=== PATIENT | female | born 1990 | race Caucasian/White ===

== ENCOUNTER 2020-03-18 12:31 | Emergency (ER) | payer OTHER, SELFPAY ==
[2020-03-18 12:37] VITALS: BP 102/75; PULSE 104; RESP 14; TEMP 36.4; O2SAT 99
--- NOTE | 2020-03-18 12:43 | ED.SKABFB ---
HPI - Skin/Abscess/Foreign Bdy General Chief complaint: Skin/Abscess/Foreign Body Stated complaint: rash on arms,face,foot Time Seen by Provider: 03/18/20 12:43 Source: patient and RN notes reviewed History of Present Illness HPI narrative: Patient is a 29-year-old female that presents the urgent care with complaints of rash to the left arm, right foot, and around the left eye. Patient states that 5 days ago she was cutting down a tree, in which she got poison oak from last year. Patient states she woke up 4 days ago with the rash in the above areas. Patient is 8 months and followed up with her CITY SURVEYOR, Dr. Garima Landaverde, and was using vzei-qga-asproxe Benadryl and hydrocortisone as well as calamine lotion. Patient states that her CITY SURVEYOR suggested she be seen at the urgent care to suggest further treatment options. Patient states that the eye swelling started yesterday and seems to have gotten worse. Denies of any vision changes. No other acute complaints. No acute distress noted. Patient read the plan of care. Related Data Home Medications Medication Instructions Recorded Confirmed [id number] acid 1 tablet PO DAILY 03/18/20 03/18/20 [ Multi] Allergies Allergy/AdvReac Type Severity Reaction Status Date / Time aspirin Allergy Unknown Hives / Verified 04/19/19 12:34 Red Face Penicillins Allergy Unknown Other Verified 03/18/20 12:46 Review of Systems Review of Systems: Narrative: CONSTITUTIONAL: Denies fever, chills, or sweats. EYES: Denies visual changes, redness, or discharge. ENT: Denies rhinorrhea, congestion, sore throat, or otalgia. CARDIOVASCULAR: Denies chest pain, palpitations, or edema. RESPIRATORY: Denies cough or dyspnea. GASTROINTESTINAL: Denies abdominal pain, nausea, vomiting, or diarrhea. GENITOURINARY: Denies dysuria or hematuria. SKIN: Reports of itchy red poison oak to left arm, right foot and around the left eye MUSCULOSKELETAL: Denies back pain, joint pain, or myalgia. NEUROLOGIC: Denies headache, numbness, or weakness. All other systems reviewed are negative, except as documented in HPI. PMFSH Comments At the time of my signature, I reviewed and agree with the nursing past medical, surgical, social, and family history. There is no relevant family history pertinent to the patient complaint. Exam Narrative: Exam Narrative: GENERAL: This is a well-nourished, well-developed patient, in no apparent distress. HEAD: normocephalic, atraumatic. EYES: PERRL. Sclera clear/white. Vision is grossly intact. Mild edema to left upper eyelid EARS: External ears normal, auditory canals clear and without drainage, TMs normal without perforation. Hearing grossly intact. NOSE: External nose normal with no obvious nasal discharge THROAT: Mucous membranes moist NECK: Neck supple SKIN: Dried ruse dermatitis noted to left AC, left lower arm, right lower arm, top of the right foot, and mild erythemic lesions noted above the left eye NEURO: awake, alert, and oriented to person, place and time. There were no obvious focal neurologic abnormalities. EXTREMITIES: No clubbing, cyanosis, or edema. Course Vital Signs Vital signs: Vital Signs Temperature 97.5 F L 03/18/20 12:37 Pulse Rate 104 H 03/18/20 12:37 Respiratory Rate 14 03/18/20 12:37 Blood Pressure 102/75 03/18/20 12:37 Pulse Oximetry 99 03/18/20 12:37 Temperature 97.5 F L 03/18/20 12:37 Pulse Rate 104 H 03/18/20 12:37 Respiratory Rate 14 03/18/20 12:37 Blood Pressure 102/75 03/18/20 12:37 Pulse Oximetry 99 03/18/20 12:37 Reviewed MDM - Skin/Abscess/Foreign Bdy MDM Narrative Medical decision making narrative: Advised the patient to continue using xfcm-unz-ewnbubk calamine and Benadryl creams as needed. May use Zyrtec as needed for itching. Start oral steroid treatment as prescribed. Take the pack as indicated. Prior to any medication administration, including pmot-knv-excexik medication and st
== END 2020-03-18 12:58 | disposition home or self-care (01) ==
PROVIDERS: Emergency Provider Nurse Practitioner Family; PCP Internal Medicine
DX: L23.7 Allergic contact dermatitis due to plants, except food (principal)
CPT/HCPCS: 99213; G0463

== ENCOUNTER 2020-03-24 14:36 | Emergency (ER) | payer OTHER, SELFPAY ==
[2020-03-24 14:48] VITALS: BP 126/67; PULSE 105; RESP 14; TEMP 36.8; O2SAT 98
--- NOTE | 2020-03-24 14:51 | ED.SKABFB ---
HPI - Skin/Abscess/Foreign Bdy General Chief complaint: Skin/Abscess/Foreign Body Stated complaint: Poison Jackson Time Seen by Provider: 03/24/20 14:52 Source: patient and RN notes reviewed Mode of arrival: ambulatory Limitations: no limitations History of Present Illness HPI narrative: This is a 29 years old female presents to the office for an re-evaluation of itchy rash. States, she completed steroid today; but she still has rash on her belly region. She called her OBGYN; who recommends that she comes back here. She is 8months and scheduled to have in 3 weeks. HPI - Skin/Abscess/Foreign Bdy General Chief complaint: Skin/Abscess/Foreign Body Stated complaint: rash on arms,face,foot Time Seen by Provider: 03/18/20 12:43 Source: patient and RN notes reviewed History of Present Illness HPI narrative: Patient is a 29-year-old female that presents the urgent care with complaints of rash to the left arm, right foot, and around the left eye. Patient states that 5 days ago she was cutting down a tree, in which she got poison oak from last year. Patient states she woke up 4 days ago with the rash in the above areas. Patient is 8 months and followed up with her EXPERIENCE SPECIALIST, Dr. Garima Landaverde, and was using btpk-ydg-ezgupfo Benadryl and hydrocortisone as well as calamine lotion. Patient states that her EXPERIENCE SPECIALIST suggested she be seen at the urgent care to suggest further treatment options. Patient states that the eye swelling started yesterday and seems to have gotten worse. Denies of any vision changes. No other acute complaints. No acute distress noted. Patient read the plan of care. Related Data Home Medications Medication Instructions Recorded Confirmed [id number] acid 1 tablet PO DAILY 03/18/20 03/24/20 [ Multi] Allergies Allergy/AdvReac Type Severity Reaction Status Date / Time aspirin Allergy Unknown Hives / Verified 03/24/20 14:55 Red Face Penicillins Allergy Unknown Other Verified 03/24/20 14:55 Review of Systems Review of Systems: Narrative: CONSTITUTIONAL: Denies fever or feeling ill ENT:Denies difficulty breathing/swallowing CARDIOVASCULAR: Denies chest pain RESPIRATORY: Denies dyspnea GASTROINTESTINAL: Denies nausea, vomiting SKIN: Reports itchy rash on her arms and belly region MUSCULOSKELETAL: Denies acute back pain NEUROLOGIC: Denies lightheaded PMFSH Comments At time of signature, I agree with nursing past medical, surgical, social and family history. There is no relevant family history pertinent to the presenting complaint. Exam Narrative: Exam Narrative: GENERAL: This is a well-nourished, well-developed patient, in no apparent distress. CARDIOVASCULAR: Regular rate and rhythm without murmurs, gallops, or rubs. RESPIRATORY: Clear to auscultation. Breath sounds equal bilaterally. No wheezes, rales, or rhonchi. GASTROINTESTINAL: Abdomen appears very round and protrude. No guarding or tenderness noted. SKIN: left AC noted excoriation macular-papular rash without erythema or secondary infection. Abdomen noted excoriation and scratch freddie without obvious lymphandenitis. NEURO: awake, alert, and oriented to person, place and time. There were no obvious focal neurologic abnormalities. Steady gait Hudson Coma Scale Eye Opening: Spontaneous 4 Hudson Coma Scale Motor: Obeys Commands 6 Delisa Coma Scale Verbal: Oriented 5 MDM - Skin/Abscess/Foreign Bdy MDM Narrative Medical decision making narrative: Since patient is finished the steroid today, I do not think it is a good idea to give her steroid injection or prescribed more steroid since the rash does not appears inflamed/generalized; however she can be benefited from topical steroid. Patient agrees with plan of care. Discharge instructions reviewed with patient, as well as provided in writing per nursing staff. The instructions also include specific and strict return/GO TO THE ER as well as f/u informa
== END 2020-03-24 15:11 | disposition home or self-care (01) ==
PROVIDERS: Emergency Provider Nurse Practitioner; PCP Internal Medicine
DX: O99.713 Diseases of the skin and subcutaneous tissue complicating pregnancy, third trimester (principal); L24.7 Irritant contact dermatitis due to plants, except food; Z3A.35 35 weeks gestation of pregnancy
CPT/HCPCS: 99213; G0463

== ENCOUNTER 2020-04-16 16:40 | Outpatient (CLI) | payer OTHER, SELFPAY ==
[2020-04-16 16:59] LABS: Hematocrit 33.3 % (37.0-47.0); Mean Corpuscular Hemoglobin 28.2 pg (26-34); Mean Corpuscular Volume 85.4 fl (80-100); Mean Platelet Volume 10.6 fl (7.4-10.4); Platelet Count Result 202 k/mm3 (150-375); Red Cell Distribution Width 13.6 % (11.5-14.5); White Blood Count 7.5 K/mm3 (4.5-10.0)
[2020-04-18 07:41] LABS: Rapid Plasma Reagin Non-Reactive (NonReactive)
== END 2020-04-16 16:41 | disposition home or self-care (01) ==
LOC: ANHOBOP 16:42
PROVIDERS: PCP Internal Medicine; Visit Provider Obstetrics & Gynecology
DX: Z34.93 Encounter for supervision of normal pregnancy, unspecified, third trimester (principal); Z3A.00 Weeks of gestation of pregnancy not specified
CPT/HCPCS: 36415; 85027; 86592; 86850; 86900; 86901

== ENCOUNTER 2020-04-17 12:51 | Inpatient (IN) | payer OTHER, SELFPAY ==
--- NOTE | 2020-03-25 15:21 | PC.NURSE ---
VERIFIED WITH OR SCHEDULE AND PATIENT --C/S ON 04/18/20 AT 1200 PATIENT GIVEN REQUISITION FOR LAB DRAWN ON 04/16/20
[2020-04-17] VITALS (42 sets, daily range): BP systolic 93–126; BP diastolic 50–90; PULSE 69–101; RESP 14–20; TEMP 36.3–37.1; O2SAT 90–100; BMI 43.3
--- NOTE | 2020-04-17 13:10 | LDADM ---
This patient, Kianna Cortes, was admitted to Labor/Delivery/Recovery 120 on 04/17/20 at 1251. Plans for surgery/ and pain management were discussed with patient. Patient/family oriented to hospital policies and general routines including ID bracelet, bed and alarms, visiting hours, pain management, procedures, bathroom and other care routines, personal items, smoking policy, room service/diet and guest tray routines, security routines, and visiting hours. Patient/Family are encouraged to report perceived risks to care and to ask questions if they do not understand what they are told or what they should do. See OBIX for further documentation.
--- NOTE | 2020-04-17 13:19 | WPDANESEPPF ---
Anes - Initial Pre Proc Eval Procedure: Operation Date: 04/18/20 12:00 Proposed Procedures p Repeat Section - Dena Landaverde MD Date/Time: 04/17/20 13:19 Surgeon: eDna Landaverde MD Pre Op Diagnosis: Leaking Patient Data Age: 29 Gender: F Height: Weight: Allergies Allergy/AdvReac Type Severity Reaction Status Date / Time aspirin Allergy Unknown Hives / Verified 03/25/20 14:56 Red Face Penicillins Allergy Unknown Other Verified 03/25/20 14:56 Home Medications Medication Instructions Recorded Confirmed Type [id number] acid 1 tablet PO DAILY 03/18/20 03/24/20 History [ Multi] triamcinolone acetonide 1 applic TOPICAL BID #30 gm 03/24/20 Rx Patient hx anesthesia problems: none Family hx anesthesia problems: none PMFSH Past Medical History Medical History Marijuana use Family History Family History Mother Hypothyroidism Hypertension Cervical cancer Kidney carcinoma Lung cancer Diabetes mellitus Sibling Cervical cancer Hypothyroidism IBS (irritable bowel syndrome) Father Liver cancer Kidney carcinoma Bone cancer Diabetes mellitus Hypertension Acute myocardial infarction History of blood clots Thyroid ca Social History Social History Substance use: current Spiritual care concerns: No Anes - Eval Final PreProcedure Day of Procedure 04/17/20 13:19 Patient weight: morbidly obese Heart: regular rate and rhythm Lungs: decreased breath sounds Airway: Mallampati scale class II Neurological: alert and oriented ASA classification: III Emergent: yes Anesthetic plan: proceed Anesthesia type and monitoring: regional spinal and standard monitoring Informed Consent: The patient's anesthetic plan and its attendant risks and benefits were discussed with the patient/family/POA. Questions were solicited and answers provided to the satisfaction of the patient/family/POA.
[2020-04-17] MEDS: LACTATED RINGERS 1,000 ML 125 ML IV CONT (13:25)
--- NOTE | 2020-04-17 13:29 | PM.IMHP ---
H&P: HPI History of Present Illness Chief complaint: Leaking Narrative: Kianna Cortes is a 29 year old female 3 para 1011 at 38-,6/7 weeks gestation who presents with spontaneous rupture membranes. She had a scheduled delivery for tomorrow for a previous delivery. She has no complaints other than the loss of fluid. She denies any vaginal bleeding. She has occasional contraction. She denies any nausea, vomiting, fever, chills. She denies any chest pain or shortness of breath. She reports good movement. Review of Systems Constitutional: Constitutional: Reports no additional constitutional complaints, Denies fatigue, Denies headache(s), Denies lethargy and Denies weakness Eyes: Eyes: Reports no additional eye complaints, Denies blurry vision and Denies photophobia ENT: Reports as per HPI, Denies headache(s) and Denies neck pain Cardiovascular: Cardiovascular: Denies chest pain, Denies diaphoresis, Denies leg edema, Denies palpitations and Denies dyspnea Respiratory: Respiratory: Denies hemoptysis, Denies dyspnea and Denies wheezing Gastrointestinal: Gastrointestinal: Denies abdominal pain, Denies melena, Denies bloating, Denies hematochezia, Denies nausea and Denies vomiting Genitourinary: Genitourinary: Reports no additional female genitourinary complaints Musculoskeletal: Musculoskeletal: Denies joint swelling, Denies neck pain, Denies numbness and Denies stiffness Neurologic: Denies Abnormal speech present, Denies confusion, Denies headache(s), Denies numbness and Denies weakness Psychiatric: Psychiatric: Denies anxiety, Denies confusion, Denies depression, Denies homicidal ideation and Denies suicidal ideation Endocrine: Endocrine: Denies fatigue and Denies palpitations Allergic/Immunologic: Allergic/Immunologic: Denies wheezing PMFSH Past Medical History Medical History Marijuana use Family History Family History Mother Hypothyroidism Hypertension Cervical cancer Kidney carcinoma Lung cancer Diabetes mellitus Sibling Cervical cancer Hypothyroidism IBS (irritable bowel syndrome) Father Liver cancer Kidney carcinoma Bone cancer Diabetes mellitus Hypertension Acute myocardial infarction History of blood clots Thyroid ca Social History Social History Substance use: current Spiritual care concerns: No Meds Home Medications and Allergies Home Medications Medication Instructions Recorded Confirmed Type [id number] acid 1 tablet PO DAILY 03/18/20 03/24/20 History [ Multi] Allergies Allergy/AdvReac Type Severity Reaction Status Date / Time aspirin Allergy Unknown Hives / Verified 03/25/20 14:56 Red Face Penicillins Allergy Unknown Other Verified 03/25/20 14:56 Vital Signs Vital Signs - 24 hr 04/17/20 13:28 Pulse Rate 101 H Blood Pressure 125/84 Exam Const: General: healthy appearing, comfortable and no acute distress; No confusion Orientation/consciousness: No confusion Eyes: Direct Ophthalmoscopy: No photophobia Resp: Auscultation: clear to auscultation bilaterally, no rales, no rhonchi and no wheezes Cardio: Rate: regular rate Heart sounds: no click, no murmurs and no rubs GI: Inspection: non-distended GI Palp: No abdominal tenderness Auscultation: normal bowel sounds Neuro: General: No confusion Speech: No Abnormal speech present Extrem: General: normal to inspection, no pedal edema and no calf tenderness Assessment and Plan Assessment and plan (1) Previous delivery, antepartum condition or complication: Code(s): O34.219 - Maternal care for unspecified type scar from previous delivery Status: Acute (2) Term : Code(s): Z34.90 - Encounter for supervision of normal , unspecified, unspecified trimes
[2020-04-17] MEDS: ceFAZolin 2 GM/D5W 50 ML 2 GM/50 ML BAG IVPB (13:45)
--- NOTE | 2020-04-17 14:21 | P.OP_ITS ---
Procedure Note - Detailed Date of procedure: 04/17/20 Pre-op diagnosis: C Section/ ROM Previous Post-op diagnosis: same Procedure performed: low-transverse delivery Description of procedure: The patient was taken the operating room. She was prepped and draped in the dorsal supine position with leftward tilt after induction of spinal anesthetic. When anesthesia was found to be adequate a low-transverse skin incision was made and carried down to the level the fascia with the knife. The fascial incision was made at the midline with a scalpel. The fascial incision was extended laterally with Mendez scissors. The fascia was tented upward superior and inferior with Az clamps. The rectus muscles were dissected off bluntly. The rectus muscles at the midline. The preperitoneal fat was dissected bluntly at the superior aspect of the separate the rectus muscles. The peritoneal cavity was entered bluntly in the same area. The peritoneal incision was extended superior and inferior with good visualization of bladder. Bladder blade was inserted. A low-transverse incision was made on the uterus with the scalpel. It was carried down the level of the amniotic cavity with a knife. The amniotic cavity bluntly. The uterine incision was made laterally with blunt traction. The infant was delivered. The cord was clamped and cut. The was handed off to waiting pediatric staff. Cord bloods were obtained. The placenta was removed manually. The uterus was exteriorized. Uterus cleared of all clots and debris. Uterus closed in 0 Vicryl in a running locked fashion. An imbricating layer of 0 Vicryl was also placed on the to bolster the closure. The uterus was returned to the abdomen. The gutters were cleared of all clots and debris. The fascia was closed 0 V icryl in a running fashion. Subcutaneous tissue was irrigated and bleeding areas were cauterized. The skin was closed with subcuticular absorbable keith. The incision was covered with derma mcgowan. The patient tolerated the procedure well. She was taken recovery room stable condition. Sponge, lap, needle counts were correct x2. Anesthesia: spinal Surgeon: Toi Branch MD Estimated blood loss (mL): 340 Drains: No Packing: No Pathology: none sent Complications: No immediate complications Condition: stable Disposition: floor Findings: Normal maternal anatomy. Average size infant with normal Apgars. No gross evidence of abruption.
[2020-04-17] MEDS: LACTATED RINGERS 1,000 ML 999 ML IV CONT (14:28)
[2020-04-17 15:12] LABS: Amphetamine Screen Urine Negative (Negative); Barbiturate Screen Urine Negative (Negative); Benzodiazepines Screen Urine Negative (Negative); Cannabinoid Screen Urine Positive (Negative); Cocaine Screen Urine Negative (Negative); Methadone Screen Urine Negative (Negative); Opiate Screen Urine Negative (Negative); Phencyclidine Screen Urine Negative (Negative)
[2020-04-17] MEDS: OXYTOCIN 30 UNITS/NS 500 ML 30 UNITS/500 ML BAG 125 UNITS IV CONT (15:15)
--- NOTE | 2020-04-17 16:45 | PC.NURSE ---
Patient transferred to post room #282 via wheelchair. Support person present. Oriented to unit, room, information board, rooming in, admission packet and security measures. Patient verbalizes understanding.
[2020-04-17] MEDS: KETOROLAC 30 MG/ML VIAL (*BKC) IV PUSH (17:24)
[2020-04-17] MEDS: NICOTINE (*PBKC) 7 MG PATCH 1 PATCH TRANSDERM (17:46)
[2020-04-17] MEDS: DEXTROSE 5%/0.45% SOD CHL 1,000 ML 125 ML IV CONT (19:33)
[2020-04-18 00:15] VITALS: BP 111/57; PULSE 84; RESP 14; TEMP 36.6
[2020-04-18 04:45] LABS: Basophils Percent Auto 0.1 % (0.2-1.2); Eosinophils Absolute Auto 0.1 K/mm3 (0-0.3); Eosinophils Percent Auto 1.4 % (0-4.4); Hematocrit 29.3 % (37.0-47.0); Hemoglobin 9.7 g/dL (12.0-15.0); Immature Granulocyte Absolute 0.02 K/mm3 (0.00-0.031); Immature Granulocyte Percent A 0.2 % (0-0.5); Lymphocytes Absolute Auto 1.14 K/mm3 (0.9-3.2); Lymphocytes Percent Auto 13.3 % (18.3-44.2); Mean Corpuscular HGB Conc 33.1 g/dl (32-36); Mean Corpuscular Hemoglobin 28.1 pg (26-34); Mean Corpuscular Volume 84.9 fl (80-100); Mean Platelet Volume 10.3 fl (7.4-10.4); Monocytes Absolute Auto 0.5 K/mm3 (0.1-0.6); Monocytes Percent Auto 5.7 % (2.6-8.5); Neutrophils Absolute Auto 6.8 K/mm3 (1.3-6.7); Neutrophils Percent Auto 79.3 % (45.5-73.1); Platelet Count Result 162 k/mm3 (150-375); Red Blood Count 3.45 M/mm3 (4.2-5.4); Red Cell Distribution Width 13.6 % (11.5-14.5); White Blood Count 8.6 K/mm3 (4.5-10.0)
[2020-04-18] MEDS: IBUPROFEN 600 MG TABLET PO ×3 (04:46→19:18)
[2020-04-18 05:45] VITALS: BP 120/68; PULSE 104; RESP 14; TEMP 36.5
--- NOTE | 2020-04-18 07:40 | P.PNOB_ITS ---
OB - PN: Subj Subjective Date/time seen: 04/18/20 07:40 Patient comments: no complaints, pain well controlled, incisional pain, tolerating diet, flatus present and other (Lochia similar to menses) baby status: doing well OB - PN: Obj Data Labs CBC & Chem 7: 04/18/20 04:28 Labs: Laboratory Results - last 24 hr 04/17/20 04/18/20 14:40 04:28 WBC 8.6 RBC 3.45 L Hgb 9.7 L Hct 29.3 L MCV 84.9 MCH 28.1 MCHC 33.1 RDW 13.6 Plt Count 162 MPV 10.3 Immature Gran % (Auto) 0.2 Neut % (Auto) 79.3 H Lymph % (Auto) 13.3 L [place] % (Auto) 5.7 Eos % (Auto) 1.4 Baso % (Auto) 0.1 L Lymph # (Auto) 1.14 [place] # (Auto) 0.5 Eos # (Auto) 0.1 Baso # (Auto) 0.0 Abs Immat Gran (auto) 0.02 Absolute Neuts (auto) 6.8 H Absolute Nucleated RBC 0.0 Nucleated RBC % 0.0 Urine Opiates Screen Negative Urine Methadone Screen Negative Ur Barbiturates Screen Negative Ur Phencyclidine Scrn Negative Ur Amphetamine Screen Negative U Benzodiazepines Scrn Negative Urine Cocaine Screen Negative U Cannabinoids Screen Positive A OB - PN A/P Plan day: 1 (s/p C section, doing well) Plan: routine care Time Spent With Patient Time: Total time spent is greater than 50% in coordination of care (as documented) at patient's floor/unit and/or counseling patient: Exam Const: General: no acute distress Resp: Auscultation: clear to auscultation bilaterally Cardio: Rate: regular rate Rhythm: regular rhythm GI: Inspection: non-distended, incision (Intact without erythema, drainage, or induration) and other (Fundus firm and nontender at umbilicus) GI Palp: Yes abdominal tenderness (appropriate ) and Yes Soft to palpation Extrem: General: no edema
[2020-04-18 08:10] VITALS: BP 97/65; PULSE 81; RESP 16; TEMP 36.8; O2SAT 98
--- NOTE | 2020-04-18 08:40 | WPDANLDNPN2 ---
Anes-Prog Note L&D-Neuraxial Date/Time: 04/18/20 08:40 Neuraxial medications: intrathecal PF morphine Opiod-related complaints: none Patient feedback: Patient satisfied with post-operative pain management.
--- NOTE | 2020-04-18 08:40 | WPDANLDPN2 ---
Anes-Prog Note L&D Date/Time: 04/18/20 08:40 Comfortable throughout: section Neuraxial method: spinal Epidural/Spinal procedure site: clean & non-tender Neuro status: Neuro function grossly intact. Cardiovascular status: normal Respiratory status: normal Airway patency: baseline Mental status: baseline Post-Op hydration status: normal Vital Signs: Last Vital Signs Temp 36.5 C 04/18/20 05:45 Pulse 104 H 04/18/20 05:45 Resp 14 04/18/20 05:45 BP 120/68 04/18/20 05:45 Pulse Ox 100 04/17/20 19:00 I/O: Intake & Output 04/17/20 04/18/20 04/18/20 23:59 07:59 15:59 Intake Total 150 2500 Output Total 400 2500 Balance -250 0 Post-procedural complaints: none Patient feedback: Patient satisfied with anesthetic care.
[2020-04-18] MEDS: MULTIVIT/MIN/PREN/FOL AC/IRON TABLET 1 TAB PO (09:01)
[2020-04-18] MEDS: POLYSACCHARIDE IRON COMPLEX 150 MG CAPSULE PO ×2 (09:01→19:18)
[2020-04-18] MEDS: DOCUSATE SODIUM 100 MG CAPSULE PO ×2 (09:01→19:18)
[2020-04-18] MEDS: SIMETHICONE 80 MG TAB.CHEW PO ×5 (09:02→23:26)
--- NOTE | 2020-04-18 10:42 | PCCCNOTE ---
Care Coordination. Patient referred to CC for mother and baby having positive UDS for marijuana. I spoke with pt. via phone. She plans to return home with ANICETO, Nolan Parker, and her other child. She denies [facility] current involvement. She reports having all necessary baby care items and is setup with [facility]. She denies needs for community resources or substance abuse. Spoke with Micheline Champion at [facility] Hotline (Intake ID#[id number]), who documented pt.'s situation, and states they will not take a report. Notified RNKarlee. No further CC needs.
[2020-04-18] MEDS: NICOTINE (*PBKC) 7 MG PATCH 1 PATCH TRANSDERM (12:41)
[2020-04-18 19:19] VITALS: BP 124/78; PULSE 103; RESP 16; TEMP 36.7; O2SAT 99
[2020-04-18] MEDS: TETANUS,DIPHTHERIA,AC PERTUSSIS ADULT (0.5 ML) BOOSTRIX IM (19:35)
[2020-04-19] MEDS: IBUPROFEN 600 MG TABLET PO (06:01)
[2020-04-19] MEDS: SIMETHICONE 80 MG TAB.CHEW PO (06:04)
--- NOTE | 2020-04-19 07:34 | PM.OBPNVD ---
OB - PN: Subj Subjective Date/time seen: 04/19/20 07:34 Patient comments: no complaints, pain well controlled, incisional pain, tolerating diet and flatus present OB - PN: Obj Data Labs CBC & Chem 7: 04/18/20 04:28 OB - PN A/P Plan day: 2 Plan: routine care Comments: POD#2 LTCS - no problems, Time Spent With Patient Time: Total time spent is greater than 50% in coordination of care (as documented) at patient's floor/unit and/or counseling patient: Exam Const: General: comfortable, no acute distress and alert Resp: Effort & Inspection: normal respiratory effort Auscultation: no crackles, no rales and no rhonchi Cardio: Rate: regular rate Heart sounds: no click, no murmurs and no rubs GI: Inspection: non-distended GI Palp: No Tenderness to palpation present (GI) Auscultation: normal bowel sounds Other: Incision - CDI Extrem: General: normal to inspection, no pedal edema and no calf tenderness
--- NOTE | 2020-04-19 07:34 | PM.OBDSVD ---
DS: Admitting Diagnosis Admitting Diagnosis Admitting Diagnosis: Maternal care for unspecified type scar from previous delivery DS: Discharge Diagnosis Discharge Diagnosis (1) Premature rupture of membranes: Code(s): O42.90 - Premature rupture of membranes, unspecified as to length of time between rupture and onset of labor, unspecified weeks of gestation Status: Acute (2) Term : Code(s): Z34.90 - Encounter for supervision of normal , unspecified, unspecified trimester Status: Acute (3) Previous delivery, antepartum condition or complication: Code(s): O34.219 - Maternal care for unspecified type scar from previous delivery Status: Acute OB - DS: Summary OB Procedures : None OB Procedures Intrapartum: OB Procedures: : None Peripartum Data Infant Delivery Method: Section Procedures: Procedures Operation Date: 04/17/20 13:30 Actual Procedures Side Surgeon p Repeat Section Not Applicable Toi Branch MD Time Spent with Patient Time attestation: Total time spent providing and/or coordinating discharge services: Discharge Plan Discharge Discharging Clinician: Toi Branch Patient Disposition: Home, Self-Care Activity: pelvic rest Diet: regular Patient Instructions: How to Stop Smoking (GEN), Secondhand Smoke Exposure in Children (GEN), Antibiotic Form Stand Alone Forms: General Discharge Information Follow-up/Referrals: Toi Branch MD [Physician] - Discharge Medications: New hydrocodone-acetaminophen 5-325 mg tablet 1 - 2 tablet PO Q4H PRN (Reason: pain) Qty: 25 RF: 0 Continued Multi 27-800 mg-mcg Tablet 1 tablet PO DAILY RF: 0 Date of admission: 04/17/20 12:51 Primary Care Provider: Jesus,Jimmie Admitting Provider: Dena Landaverde Attending physician on admission: Dena Landaverde
[2020-04-19 08:38] VITALS: BP 127/81; PULSE 94; RESP 18; TEMP 36.5; O2SAT 94
[2020-04-19] MEDS: MULTIVIT/MIN/PREN/FOL AC/IRON TABLET 1 TAB PO (08:40)
[2020-04-19] MEDS: DOCUSATE SODIUM 100 MG CAPSULE PO (08:40)
[2020-04-19] MEDS: POLYSACCHARIDE IRON COMPLEX 150 MG CAPSULE PO (08:40)
[2020-04-20 08:47] VITALS: BP 103/72; PULSE 89; RESP 20; TEMP 36.9; O2SAT 98
== END 2020-04-19 10:04 | disposition home or self-care (01) | DRG 540 ==
LOC: ANHLDR 14:15 → ANHOB2 17:02 → ANHLDR 04-20 08:26 → ANHOB2 04-20 08:26
PROVIDERS: Admitting Provider Obstetrics & Gynecology; PCP Internal Medicine; Visit Provider Obstetrics & Gynecology
DX: O42.92 Full-term premature rupture of membranes, unspecified as to length of time between rupture and onset of labor (principal); Z37.0 Single live birth; Z3A.38 38 weeks gestation of pregnancy; O34.211 Maternal care for low transverse scar from previous cesarean delivery; E66.01 Morbid (severe) obesity due to excess calories; O99.214 Obesity complicating childbirth; O69.81X0 Labor and delivery complicated by cord around neck, without compression, not applicable or unspecified; O99.324 Drug use complicating childbirth; F12.90 Cannabis use, unspecified, uncomplicated
CPT/HCPCS: 36415; 80307; 85025; 90715; A9270; J0131; J0690; J1200; J1885; J2274; J2590; J7120

== ENCOUNTER 2021-01-01 11:40 | Emergency (ER) | payer OTHER, SELFPAY ==
--- NOTE | ~2021-01-01 | XR_ITS ---
XR ankle LT min 3V DATE: 01/01/2021 12:35 INDICATION: Fell down steps. Pain and swelling of left ankle TECHNIQUE: 4 views COMPARISON: None FINDINGS: No soft tissue swelling or fracture or dislocation of the ankle or disruption of the ankle mortise is detected. IMPRESSION: Negative Reviewed, dictated and finalized at location A. TROMECHANICAL ENGINEER IMPRESSION: Negative
--- NOTE | ~2021-01-01 | XR_ITS ---
XR foot LT min 3V DATE: 01/01/2021 12:37 INDICATION: Fall downstairs. Pain and swelling anterolaterally TECHNIQUE: 4 views COMPARISON: None FINDINGS: No fracture or dislocation, periosteal reaction or bone destruction. IMPRESSION: Negative Reviewed, dictated and finalized at location A. L BUSINESS BANKING OFFICER IMPRESSION: Negative
[2021-01-01 11:55] VITALS: BP 110/71; PULSE 95; RESP 18; TEMP 36.9; O2SAT 98
--- NOTE | 2021-01-01 12:24 | ED.LOWEXIN ---
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 Although the patient has been able to ambulate with pain on foot is convinced that she has an acute fracture. No evidence of ecchymosis and only mild swelling, pain rated as 8 out of 10 Related Data Allergies Allergy/AdvReac Type Severity Reaction Status Date / Time aspirin Allergy Unknown Hives / Verified 01/01/21 11:57 Red Face Penicillins Allergy Unknown Other Verified 01/01/21 11:57 Review of Systems Review of Systems: Narrative: CONSTITUTIONAL: Denies fever, chills, sweats. EYES: Denies visual changes, redness, discharge. ENT: Denies rhinorrhea, congestion, sore throat, otalgia. CARDIOVASCULAR: Denies chest pain, palpitations, edema. RESPIRATORY: Denies dyspnea, wheezing, cough GASTROINTESTINAL: Denies abdominal pain, nausea, vomiting, diarrhea. GENITOURINARY: Denies dysuria, hematuria, abnormal discharge SKIN: Denies rash or itching. NEUROLOGIC: Denies numbness, or focal weakness. PSYCHIATRIC: Denies anxiety or depression. Left foot pain from fall PMFSH Past Medical History Medical History Marijuana use Family History Family History Mother Cervical cancer Diabetes mellitus Hypothyroidism Lung cancer Kidney carcinoma Hypertension Sibling Cervical cancer Hypothyroidism IBS (irritable bowel syndrome) Father History of blood clots Liver cancer Thyroid ca Diabetes mellitus Bone cancer Acute myocardial infarction Kidney failure Due to his cancer Hypertension Social History Social History (Updated 01/01/21 @ 12:57 by Brinda Guallpa CNP) Smoking packs per day: 0.5 Smoking cigarettes per day: 10.0 Years smoked: 12 Smoking pack-years: 6.00 Smoking status: Current every day smoker Tobacco type: cigarettes Second hand tobacco smoke exposure: Yes Alcohol intake: current Substance use: current Spiritual care concerns: No Comments At time of signature, I agree with nursing past medical, surgical, social and family history. There is no relevant family history pertinent to the presenting complaint. Exam Narrative: Exam Narrative: GENERAL: This is a well-nourished, well-developed patient, in moderate distress. HEAD: normocephalic, atraumatic. EYES: Sclera clear/white. Vision is grossly intact. EARS: External ears normal. Hearing grossly intact. NOSE: External nose normal without nasal discharge, nares without redness, no rhinorrhea. THROAT: not performed NECK: Neck supple, non-tender CARDIOVASCULAR: Regular rate and rhythm without murmurs, gallops, or rubs. RESPIRATORY: Clear to auscultation. Breath sounds equal bilaterally. No wheezes, rales, or rhonchi. GASTROINTESTINAL: Abdomen soft, SKIN: warm, intact with no suspicious lesions or rash, good texture and turgor. NEURO: awake, alert, and oriented to person, place and time. There were no obvious focal neurologic abnormalities. Steady gait EXTREMITIES: Normal range of motion. L foort lateral pain, mild swelling, good pedal pulses, able to ambulate with some difficulty on L foot BACK: Nontender without deformity Course Course Emergency Course: Patient failed the last 3 years having pain in left foot question whether its left ankle are just in the dorsum and lateral part of foot X-ray done-shows no fracture or dislocation, periosteal reaction, no soft tissue swelling ankle mortise is within normal limits Heber wrap, ice to L foot, RICE, to get boot at [facility] to assist in ambulation Vital Signs Vital signs: Vital Signs
== END 2021-01-01 13:15 | disposition home or self-care (01) ==
PROVIDERS: Emergency Provider Nurse Practitioner; PCP Internal Medicine
DX: S93.402A Sprain of unspecified ligament of left ankle, initial encounter (principal); S96.912A Strain of unspecified muscle and tendon at ankle and foot level, left foot, initial encounter; W10.9XXA Fall (on) (from) unspecified stairs and steps, initial encounter; F17.210 Nicotine dependence, cigarettes, uncomplicated
CPT/HCPCS: 73610; 73630; 99213; G0463

== ENCOUNTER 2022-03-25 08:08 | Emergency (ER) | payer OTHER, SELFPAY ==
[2022-03-25] VITALS (13 sets, daily range): BP systolic 107–123; BP diastolic 69–86; PULSE 71–92; RESP 14–29; TEMP 36.1; O2SAT 99–100
--- NOTE | ~2022-03-25 | XR_ITS ---
EXAMINATION: XR chest 2V DATE: 03/25/2022 08:55 INDICATION: Shortness of breath. Productive cough. Chest pressure. TECHNIQUE: PA and lateral views of the chest were obtained. COMPARISON: None FINDINGS: The lungs are clear with no focal airspace opacities, pulmonary edema, pleural effusion or pneumothor ax. The cardiomediastinal silhouette is normal. Visualized bones and soft tissues are unremarkable. IMPRESSION: 1. Normal chest radiograph. Reviewed, dictated and finalized at location A. IMPRESSION: 1. Normal chest radiograph.
--- NOTE | ~2022-03-25 | CT_ITS ---
EXAMINATION: CTA chest PE abdomen pel DATE: 03/25/2022 11:57 INDICATION: Dyspnea, chest and upper abdominal pain. Elevated d-dimer. TECHNIQUE: Computed tomography (CT) pulmonary angiogram of the chest was performed with 100 mL Omnipa que-350 intravenous contrast. Additional 3D reconstructions utilizing coronal maximum intensity proje ction (MIP) were performed. CT of the abdomen and pelvis was performed with intravenous contrast util izing the same contrast bolus following a short delay. Automated exposure control and iterative recon struction technique were employed. The dose-length product was 1212.47 mGy-cm. COMPARISON: None FINDINGS: Chest: Good contrast opacification of the pulmonary arteries. There is mild streak artifact from dense contr ast in the superior vena cava and right atrium. Mild respiratory motion artifact at the lung bases wh ich does not significantly limit evaluation. No pulmonary embolism. 4 mm left lower lobe nodule which given patient age is almost certainly benign requiring no further follow-up. No pneumonia, pulmonary edema, pleural effusion or pneumothorax. Heart size is normal. No pericardial effusion. Thoracic aor ta is normal in caliber. Normal anatomic variant retroesophageal aberrant right subclavian artery. No pathologically enlarged thoracic lymphadenopathy. Mild thoracic spondylosis. Abdomen/pelvis: Liver, spleen, pancreas, bilateral adrenal glands and right kidney are normal. There are geographic r egions of decreased parenchymal enhancement at the left kidney with overlying mild stranding in the a djacent perirenal fat and with urothelial enhancement at the nondilated left renal pelvis. Constellat ion of findings would be most consistent with pyelonephritis. There is a small region of scarring lik emelia related to prior infection at the upper pole of the left kidney. Minimal fluid surrounding the no rmal appearing decompressed gallbladder with additional small amount of ascites in the cul-de-sac. Romulo wels including the appendix are normal. Mild wall thickening of the decompressed bladder with subtle haziness to the surrounding fat suspicious for cystitis. Anteverted uterus and right adnexa are michael l. 3 cm left adnexal cyst/follicle. No abscess or free intraperitoneal gas. Minute fat-containing umb ilical hernia. No pathologically enlarged abdominal or pelvic lymphadenopathy. Bones are unremarkable . IMPRESSION: 1. No pulmonary embolism or other acute cardiopulmonary disease. 2. Findings consistent with cystitis, ascending urinary tract infection and left pyelonephritis. Richelle elate with urinalysis. 3. Small amount of pericholecystic fluid versus edematous wall thickening of the otherwise normal-valeriano earing decompressed gallbladder likely related to pyelonephritis. Reviewed, dictated and finalized at location A. IMPRESSION: 1. No pulmonary embolism or other acute cardiopulmonary disease. 2. Findings consistent with cystitis, ascending urinary tract infection and lef t pyelonephritis. Correlate with urinalysis. 3. Small amount of pericholecystic fluid versus edematous wall thickening of th e otherwise normal-appearing decompressed gallbladder likely related to pyelone phritis.
--- NOTE | 2022-03-25 08:16 | ECG_ITS ---
Measurements Intervals [place] Rate: 88 P: 64 MT: 150 QRS: 53 QRSD: 92 T: 29 QT: 371 QTc: 450 Interpretive Statements SINUS RHYTHM POSSIBLE LEFT ATRIAL ENLARGEMENT BORDERLINE ST-T WAVE ABNORMALITY- ANT/INF LEADS BORDERLINE ECG Electronically Signed On 03-25-2022 11:01:40 CDT by Ronny Gerardo D.O.
[2022-03-25 08:32] LABS: Basophils Percent Auto 0.3 % (0.2-1.2); Eosinophils Absolute Auto 0.1 K/mm3 (0-0.3); Eosinophils Percent Auto 1.2 % (0-4.4); Hematocrit 35.6 % (37.0-47.0); Hemoglobin 11.8 g/dL (12.0-15.0); Immature Granulocyte Absolute 0.03 K/mm3 (0.00-0.031); Immature Granulocyte Percent A 0.4 % (0-0.5); Lymphocytes Absolute Auto 1.45 K/mm3 (0.9-3.2); Lymphocytes Percent Auto 18.6 % (18.3-44.2); Mean Corpuscular HGB Conc 33.1 g/dl (32-36); Mean Corpuscular Hemoglobin 29.1 pg (26-34); Mean Corpuscular Volume 87.7 fl (80-100); Mean Platelet Volume 9.9 fl (7.4-10.4); Monocytes Absolute Auto 0.5 K/mm3 (0.1-0.6); Monocytes Percent Auto 6.3 % (2.6-8.5); Neutrophils Absolute Auto 5.7 K/mm3 (1.3-6.7); Neutrophils Percent Auto 73.2 % (45.5-73.1); Platelet Count Result 263 k/mm3 (150-375); Red Blood Count 4.06 M/mm3 (4.2-5.4); Red Cell Distribution Width 14.2 % (11.5-14.5); White Blood Count 7.8 K/mm3 (4.5-10.0)
[2022-03-25 08:43] LABS: Alanine Aminotransferase 57 U/L (6-35); Albumin Level 3.8 g/dL (3.5-5.1); Alkaline Phosphatase 130 U/L (38-126); Anion Gap 8 mmol/L (8-16); Aspartate Amino Transferase 41 U/L (14-36); Bilirubin,Total 0.6 mg/dL (0.2-1.3); Blood Urea Nitrogen 6 mg/dL (7-17); Calcium 8.5 mg/dL (8.4-10.2); Carbon Dioxide 25 mmol/L (22-30); Chloride 108 mmol/L (98-107); Estimated CRCL calculation 98 ml/min; Estimated Glomerular Filt Rate > 60; Glucose 120 mg/dL (65-110); Potassium 3.1 mmol/L (3.4-5.0); Sodium 141 mmol/L (137-145)
[2022-03-25 10:24] LABS: SARS-CoV-2 RNA PCR Negative
[2022-03-25 10:36] LABS: Lipase 30 U/L (23-300)
[2022-03-25] MEDS: SODIUM CHLORIDE 0.9% IV 1,000 ML 999 ML IV CONT ×2 (10:40→13:08)
[2022-03-25] MEDS: methylPREDNISolone SOD SUCC 125 MG VIAL IV PUSH (10:40)
[2022-03-25] MEDS: ALBUTEROL SULFATE NEB 2.5 MG/3 ML INH 5 MG INHALATION ×2 (10:44→12:34)
[2022-03-25] MEDS: IPRATROPIUM BR 0.02% INH SOLN 0.5 MG/2.5 ML VIAL INHALATION ×2 (10:44→12:34)
[2022-03-25 10:56] LABS: D Dimer 0.97 ug/mL (<0.48)
[2022-03-25 11:10] LABS: Appearance Urine Clear (Clear); Bilirubin Urine Negative (Negative); Blood Urine Trace-lysed (Negative); Color Urine Yellow (Yellow); Glucose Urine UA Negative (Negative); Ketones Urine Negative (Negative); Leukocyte Esterase Ur 2+ LEU/UL (Negative); Nitrate Urine Positive (Negative); Protein Urine 1+ mg/dL (Negative); Specific Grav Ur 1.015 (1.001-1.035); Urobilinogen Urine 0.2 mg/dL (<2.0)
[2022-03-25 11:14] LABS: Amorphous Sediment Urine Few; Bacteria Urine Trace /hpf; Mucus Urine Rare /lpf; Squamous Epithelial Cell Urine Many /hpf (Few); WBC Urine >75 /hpf
[2022-03-25 11:32] LABS: Add Urine Microscopic? YES
[2022-03-25] MEDS: POTASSIUM CHLORIDE 20 MEQ TABLET 40 MEQ PO (13:08)
[2022-03-25 13:25] LABS: Lactic Acid Reflex 1.8 mmol/L (0.7-2.0)
--- NOTE | 2022-03-25 13:47 | ED.GENADULT ---
HPI - General Adult General Chief complaint: Shortness of Breath/Dyspnea Stated complaint: shortness of breath and chest pain Time Seen by Provider: 03/25/22 09:05 Source: RN notes reviewed History of Present Illness HPI narrative: Patient presents emergency department from home for shortness of breath. Patient states that she has been feeling short of breath for the past 3 days with a cough that is been productive of yellow sputum. Patient states she feels like she cannot take a deep breath states she was around someone else who had COVID but she has taken 2 home COVID tested and both been negative. Patient states that with the symptoms she has been having discomfort in her lower chest and upper abdomen pain is described as sharp and stabbing and worse with deep inspiration she denies any nausea vomiting diarrhea or any other symptoms. States she has not taking pain medication today for the pain Related Data Allergies Allergy/AdvReac Type Severity Reaction Status Date / Time aspirin Allergy Unknown Hives / Verified 01/01/21 11:57 Red Face Penicillins Allergy Unknown Other Verified 01/01/21 11:57 Review of Systems Review of Systems: Gen.: Denies fevers or chills Eyes: Denies eye pain or visual change ENT: Denies congestion Respiratory: See HPI CV: Reports lower chest pain GI: Reports upper abdominal pain denies nausea, emesis or diarrhea Musculoskeletal: Denies back pain or muscle pain Neuro: Denies numbness, tingling, weakness or focal weakness Skin: Denies rash Except as documented, all other systems reviewed and negative PMF Past Medical History Medical History Marijuana use Family History Family History Mother Cervical cancer Diabetes mellitus Hypothyroidism Lung cancer Kidney carcinoma Hypertension Sibling Cervical cancer Hypothyroidism IBS (irritable bowel syndrome) Father History of blood clots Liver cancer Thyroid ca Diabetes mellitus Bone cancer Acute myocardial infarction Kidney failure Due to his cancer Hypertension Social History Social History Smoking packs per day: 0.5 Smoking cigarettes per day: 10.0 Years smoked: 12 Smoking pack-years: 6.00 Smoking status: Current every day smoker Tobacco type: cigarettes Second hand tobacco smoke exposure: Yes Alcohol intake: current Substance use: current Spiritual care concerns: No Exam Narrative: APPEARANCE: No acute distress, nontoxic, resting in bed EYES: EOMI HEENT: Normocephalic, atraumatic, OMM RESPIRATORY: No respiratory distress wheezing throughout the bilateral lung man no rhonchi CARDIOVASCULAR: Regular rate and rhythm without murmurs rubs or gallops. ABDOMINAL: Soft, nondistended, tender palpation epigastric, right upper quadrant and left upper quadrant no tenderness right lower quadrant left lower quadrant no rebound or guarding MUSCULOSKELETAl: Moves all extremities. No clubbing, cyanosis or edema. NEURO: Awake and alert. Following commands, speech normal, no focal deficits SKIN:: Warm, dry. No rashes lesions or abrasions PSYCHIATRIC: Normal affect/mood, Course Course Emergency Course: Following breathing treatments repeat lung exam is clear to auscultation bilaterally Following CT scan to evaluate the patient mild percussion tenderness in left flank. No tenderness in right upper quadrant at this time feel CT signs are more likely related to pyelonephritis Patient states she is feeling much better. States abdominal pain has resolved. Repeat abdominal exam shows the patient's abdomen to be soft and nontender. Discussed with patient results of workup and diagnosis. Discussed need for follow-up with primary care physician, reasons to return to the emergency department in proper use of medication. Patient understands and agrees to current treatment plan Vital Sign
== END 2022-03-25 14:47 | disposition home or self-care (01) ==
PROVIDERS: Emergency Provider Emergency Medicine; PCP Internal Medicine
DX: J40 Bronchitis, not specified as acute or chronic (principal); N12 Tubulo-interstitial nephritis, not specified as acute or chronic; F17.210 Nicotine dependence, cigarettes, uncomplicated; Z20.822 Contact with and (suspected) exposure to COVID-19
CPT/HCPCS: 36415; 71046; 71275; 74177; 80053; 81001; 81025; 83605; 83690; 85025; 85380; 87077; 87086; 87186; 93005; 94640; 96365; 96367; 96375; 99284; A9270; C9803; J0131; J0696; J2930; J7030; Q9967; U0003; U0005

== ENCOUNTER 2022-06-10 18:45 | Emergency (ER) | payer OTHER, SELFPAY ==
--- NOTE | ~2022-06-10 | CT_ITS ---
EXAMINATION: CT abdomen pelvis w con DATE: 06/10/2022 22:31 INDICATION: Right upper quadrant pain. Nausea and vomiting. TECHNIQUE: Computed tomography (CT) of the abdomen and pelvis was performed without intravenous contr ast. The dose-length product was 611.44 mGy-cm. Automated exposure control and iterative reconstructi on technique were employed. COMPARISON: CT dated 03/25/2022. FINDINGS: Lung bases are unremarkable. Heart size normal. No significant pleural or pericardial effus ion. The liver, spleen, adrenal glands and kidneys are unremarkable. No hydronephrosis. There is gall bladder wall thickening with pericholecystic fluid and gallstones, consistent with cholecystitis. Sma ll amount of free fluid in the pelvis. No free air. No acute osseous abnormality. IMPRESSION: 1. Gallbladder findings, consistent with cholecystitis. Clinically correlate. Reviewed, dictated and finalized at location A.
[2022-06-10 18:52] VITALS: BP 141/73; PULSE 80; RESP 18; TEMP 36.3; O2SAT 99
[2022-06-10 19:15] LABS: Basophils Percent Auto 0.5 % (0.2-1.2); Eosinophils Absolute Auto 0.2 K/mm3 (0-0.3); Eosinophils Percent Auto 2.8 % (0-4.4); Hematocrit 38.9 % (37.0-47.0); Hemoglobin 12.6 g/dL (12.0-15.0); Immature Granulocyte Absolute 0.01 K/mm3 (0.00-0.031); Immature Granulocyte Percent A 0.1 % (0-0.5); Lymphocytes Absolute Auto 2.64 K/mm3 (0.9-3.2); Lymphocytes Percent Auto 33.8 % (18.3-44.2); Mean Corpuscular HGB Conc 32.4 g/dl (32-36); Mean Corpuscular Volume 89.4 fl (80-100); Mean Platelet Volume 9.6 fl (7.4-10.4); Monocytes Absolute Auto 0.4 K/mm3 (0.1-0.6); Monocytes Percent Auto 4.6 % (2.6-8.5); Neutrophils Absolute Auto 4.5 K/mm3 (1.3-6.7); Neutrophils Percent Auto 58.2 % (45.5-73.1); Platelet Count Result 346 k/mm3 (150-375); Red Blood Count 4.35 M/mm3 (4.2-5.4); White Blood Count 7.8 K/mm3 (4.5-10.0)
[2022-06-10 19:28] LABS: Alanine Aminotransferase 17 U/L (6-35); Albumin Level 4.6 g/dL (3.5-5.1); Alkaline Phosphatase 71 U/L (38-126); Anion Gap 12 mmol/L (8-16); Aspartate Amino Transferase 21 U/L (14-36); Bilirubin,Total 0.5 mg/dL (0.2-1.3); Blood Urea Nitrogen 10 mg/dL (7-17); Calcium 9.5 mg/dL (8.4-10.2); Carbon Dioxide 23 mmol/L (22-30); Chloride 104 mmol/L (98-107); Estimated CRCL calculation 87 ml/min; Estimated Glomerular Filt Rate > 60; Glucose 90 mg/dL (65-110); Lipase 222 U/L (23-300); Potassium 3.2 mmol/L (3.4-5.0); Sodium 139 mmol/L (137-145)
[2022-06-10] MEDS: POTASSIUM CHLORIDE 20 MEQ PACKET (FOR LIQUID) 40 MEQ PO (20:59)
--- NOTE | 2022-06-10 21:16 | ED.ABDPAIN ---
HPI - Abdominal Pain General Chief Complaint: Abdominal Pain Stated Complaint: abd pain Time Seen by Provider: 06/10/22 20:51 History of Present Illness HPI narrative: 31-year-old female presented the emergency department for evaluation of right upper quadrant pain. Patient states on she had cute onset of right upper quadrant pain. Patient denies any prior history of gallbladder disease but states she has strong family history. Patient states the pain has been constant but is worsened with eating. Patient states she has some associated nausea but denies any current nausea Patient has a surgical past medical history of C-sections. Related Data Allergies Allergy/AdvReac Type Severity Reaction Status Date / Time aspirin Allergy Unknown Hives / Verified 06/10/22 20:51 Red Face Penicillins Allergy Unknown Other Verified 06/10/22 20:51 Review of Systems Review of Systems: CONSTITUTIONAL: Denies fever, chills, or sweats. EYES: Denies visual changes, redness, or discharge. ENT: Denies rhinorrhea, congestion, sore throat, or otalgia. CARDIOVASCULAR: Denies chest pain, palpitations, or edema. RESPIRATORY: Denies cough or dyspnea. GASTROINTESTINAL: See HPI GENITOURINARY: Denies dysuria or hematuria. SKIN: Denies rash or itching. MUSCULOSKELETAL: Denies back pain, joint pain, or myalgia. NEUROLOGIC: Denies headache, numbness, or weakness. PMFSH Past Medical History Medical History Marijuana use Family History Family History Mother Cervical cancer Diabetes mellitus Hypothyroidism Lung cancer Kidney carcinoma Hypertension Sibling Cervical cancer Hypothyroidism IBS (irritable bowel syndrome) Father History of blood clots Liver cancer Thyroid ca Diabetes mellitus Bone cancer Acute myocardial infarction Kidney failure Due to his cancer Hypertension Social History Social History Smoking packs per day: 0.5 Smoking cigarettes per day: 10.0 Years smoked: 12 Smoking pack-years: 6.00 Smoking status: Current every day smoker Tobacco type: cigarettes Second hand tobacco smoke exposure: Yes Alcohol intake: current Substance use: current Spiritual care concerns: No Exam Narrative: APPEARANCE: Well appearing, no pain, no distress, well-nourished. HEAD: normocephalic, atraumatic. EYES: PERRLA/EOMI, conjunctivae clear. NOSE: Normal no drainage RESPIRATORY: Airway patent, respirations nonlabored. Clear to auscultation bilaterally, no rales, rhonchi, wheezing. CARDIOVASCULAR: Regular rate and rhythm without murmurs rubs or gallops. ABDOMINAL: Lower quadrant tenderness to palpation MUSCULOSKELETAL: Moves all extremities. Strength/ROM intact, No edema, No calf tenderness. NEURO: Alert. Cranial nerves II through XII intact. SKIN: Warm, dry. Normal Color Course Reevaluation(s) Reevaluation #1: Patient is afebrile with no leukocytosis. Patient has no elevation in her AST ALT alk phos or T bili. Minimal right upper quadrant tenderness to palpation. Patient reports her pain is improved. CT was concerning for cholecystitis, patient preferred outpatient follow-up. Vital Signs Vital signs: Vital Signs Temperature 97.3 F L 06/10/22 18:52 Pulse Rate 80 06/10/22 18:52 Respiratory Rate 18 06/10/22 18:52 Blood Pressure 141/73 H 06/10/22 18:52 Pulse Oximetry 99 06/10/22 18:52 Oxygen Delivery Room Air 06/10/22 18:52 Temperature 97.3 F L 06/10/22 18:52 Pulse Rate 80 06/10/22 18:52 Respiratory Rate 18 06/10/22 18:52 Blood Pressure 141/73 H 06/10/22 18:52 Pulse Oximetry 99 06/10/22 18:52 Oxygen Delivery Room Air 06/10/22 18:52 MDM - Abdominal Pain Lab Data Attestation: I reviewed the patient's lab results. Result diagrams: 06/10/22 19:10 06/10/22 19:10 Labs: Lab Results
[2022-06-10 21:27] LABS: Appearance Urine Clear (Clear); Bilirubin Urine Negative (Negative); Blood Urine Negative (Negative); Color Urine Yellow (Yellow); Glucose Urine UA Negative (Negative); Ketones Urine Negative (Negative); Leukocyte Esterase Ur Negative LEU/UL (Negative); Nitrate Urine Negative (Negative); Protein Urine Negative (Negative); Specific Grav Ur 1.025 (1.001-1.035); Urobilinogen Urine 0.2 mg/dL (<2.0)
[2022-06-10 21:28] LABS: Add Urine Microscopic? NO
[2022-06-10] MEDS: HYDROmorphone HCL INJ (*CRX) 1 MG/ML SYR 0.5 MG IV PUSH (21:46)
[2022-06-10] MEDS: SODIUM CHLORIDE 0.9% IV 1,000 ML 999 ML IV CONT (21:47)
== END 2022-06-10 23:31 | disposition home or self-care (01) ==
PROVIDERS: Emergency Medicine; Emergency Provider Emergency Medicine; PCP Internal Medicine
DX: R10.11 Right upper quadrant pain (principal); F17.210 Nicotine dependence, cigarettes, uncomplicated; R93.2 Abnormal findings on diagnostic imaging of liver and biliary tract
CPT/HCPCS: 36415; 74177; 80053; 81003; 81025; 83690; 85025; 96361; 96374; 99284; A9270; J1170; J7030; Q9967

== ENCOUNTER 2022-07-02 00:39 | Day surgery (SDC) | payer OTHER, SELFPAY ==
[2022-06-29 10:30] VITALS: BMI 31.8
--- NOTE | 2022-06-29 10:37 | PC.NURSE ---
Report to the Outpatient Waiting Room, entrance under the green pavilion located off [facility], at time 1300 on date 07/02/22. OR Time: 1500. - You and your visitor will be asked to self-screen and do not enter if you have any COVID symptoms. - Only one visitor and NO children visitors are allowed at this time. - The patient visitor is requested to leave or wait in car when not with patient due to restrictions. - A mask is required within the hospital. Patients may have clear liquids (water, carbonated beverages, clear teas, apple juice) until 3 hours prior to surgery with a maximum of 20 ounces. - No food from midnight until time of surgery Take the following medications with a SIP of water the morning of surgery: PAIN PILL (IF NEEDED) Medications to discontinue per physician: N/A Date to take last dose: N/A Please no make-up, nail sao tomean, hairspray, perfume, deodorant, or body powder the day of surgery. No jewelry (including any body piercings) or valuables the day of surgery, leave them at home. Please take a shower or bath the night before, or the morning of, surgery with an antibacterial soap (HIBICLENS). Wear comfortable, loose fitting clothing. - Jewelry must be removed prior to entering the operating room. Rings and piercings that are not removed may be cut off. - The hospital will not accept responsibility for valuables. - Please leave all valuables, including medications, at home the day of surgery. If you are going home after surgery, a licensed deliver driver must drive you home. - NO public transportation without another adult. - We recommend that an adult stay with you for 24 hours following discharge. - We also recommend that you do not drive, make important decision, drink alcoholic beverages, or take any drugs that were not prescribed by your health care provider for at least 24 hours after your discharge time. Follow any additional instructions given to you from your surgeon. If you or anyone in your household have experienced Covid symptoms in the past week, please notify your surgeon or the nurse liaison at the phone number below for possible testing. Telephone instructions given to PT - HERNANDEZ and asked if any additional questions and then verbalized understanding. Patient advised to call surgeon office or pre surgery nurse liaison [phone] if any additional questions.
[2022-07-02] VITALS (9 sets, daily range): BP systolic 103–132; BP diastolic 63–91; PULSE 57–86; RESP 10–20; TEMP 36.5–36.6; O2SAT 95–98
[2022-07-02] MEDS: LACTATED RINGERS 1,000 ML 30 ML IV CONT ×2 (13:00→17:15)
[2022-07-02] MEDS: ACETAMINOPHEN 500 MG TABLET 1000 MG PO (13:07)
--- NOTE | 2022-07-02 13:23 | WPDANESEPPF ---
Anes - Initial Pre Proc Eval Procedure: Operation Date: 07/02/22 14:30 Proposed Procedures p Laparoscopic Cholecystectomy, Davinci Assisted - Bruce Vasquez DO Date/Time: 07/02/22 13:23 Surgeon: Bruce Vasquez DO Pre Op Diagnosis: Acute Calculous Cholecystitis Patient Data Age: 32 Gender: F Height: 1.57 m Weight: 78.93 kg Allergies Allergy/AdvReac Type Severity Reaction Status Date / Time aspirin Allergy Unknown Hives / Verified 07/02/22 12:33 Red Face Penicillins Allergy Unknown Other Verified 07/02/22 12:33 Home Medications Medication Instructions Recorded Confirmed Type hydrocodone 5 mg-acetaminophen 325 1 tablet PO Q8H PRN pain #14 tabs 06/10/22 07/02/22 Rx mg tablet ondansetron 4 mg disintegrating 4 mg PO Q8H PRN nausea and 06/10/22 06/29/22 Rx tablet vomiting #14 tabs hydrocodone 10 mg-acetaminophen 1 tablet PO Q4H PRN pain #20 tabs 06/26/22 06/29/22 Rx 325 mg tablet Laboratory Tests 07/02/22 12:46 Amylase Pending Patient hx anesthesia problems: none Family hx anesthesia problems: none Results Review: All pre-operative results and documents have been reviewed as part of the pre-operative evaluation. [facility] Past Medical History Medical History Anxiety Depression Hx of migraines Marijuana use Surgical History Surgical History History of 2011 and 2019 Family History Family History Mother Cervical cancer Diabetes mellitus Hypothyroidism Lung cancer Kidney carcinoma Hypertension Sibling Cervical cancer Hypothyroidism IBS (irritable bowel syndrome) Father History of blood clots Liver cancer Thyroid ca Diabetes mellitus Bone cancer Acute myocardial infarction Kidney failure Due to his cancer Hypertension Social History Social History Social History: daily caffeine use- 64 oz of soda Smoking packs per day: 0.5 Smoking cigarettes per day: 10.0 Years smoked: 16 Smoking pack-years: 8.00 Smoking status: Current every day smoker Tobacco type: cigarettes Second hand tobacco smoke exposure: Yes Alcohol intake: never Substance use: current Substance use type: marijuana Living arrangements: with family Additional living arrangements comments: SON 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 Informed Consent: The patient's anesthetic plan and its attendant risks and benefits were discussed with the patient/family/POA. Questions were solicited and answers provided to the satisfaction of the patient/family/POA.
[2022-07-02 13:26] LABS: Amylase 42 U/L (30-110)
[2022-07-02] MEDS: SCOPOLAMINE 1.5 MG PATCH TRANSDERM (13:35)
--- NOTE | 2022-07-02 13:40 | SUR.PREOP ---
SPY AGENT GREEN (INDOCYANINE GREEN) 1.5 ML OF MIXED [place] [address] ALVARADO.
--- NOTE | 2022-07-02 14:00 | WPDHPUPDATE1 ---
History and Physical Update Update Date/Time: 07/02/22 14:00 History and Physical has been reviewed, including an updated exam of the patient. There are NO changes in the patient's condition. Risks, benefits, and alternatives have been discussed and questions answered. Patient agrees to proceed with procedure.
[2022-07-02] MEDS: KETOROLAC 15 MG/ML VIAL (*BKC) IV PUSH (14:06)
[2022-07-02] MEDS: ceFAZolin 2 GM/D5W 50 ML 2 GM/50 ML BAG IVPB (14:19)
--- NOTE | 2022-07-02 15:56 | W.PM.PROC2 ---
Procedure Note - Detailed Date of Procedure 07/02/22 Pre-op Diagnosis Acute Calculous Cholecystitis Post-op Diagnosis Same Procedure Performed Laparoscopic cholecystectomy, da Iram assisted Surgeon Bruce Vasquez, DO Anesthesia General and Local (0.5% bupivacaine) Indications This is a 32-year-old woman who presented to the emergency department earlier this month with acute onset of upper abdominal pain with nausea and vomiting. A CT showed evidence of acute cholecystitis but her white blood count and liver enzymes were normal. Her pain was well enough controlled to be discharged from the emergency department. She followed up as an outpatient and discussions were made with the patient about treatment options. Decision was made to proceed with robotic assisted laparoscopic cholecystectomy, possible open. Findings Laparoscopic cholecystectomy was performed. The gallbladder was tense and dilated and the gallbladder wall appeared thickened and edematous. The cystic duct tapered down to normal size. The gallbladder did not appear to have any uptake of the ICG which suggested cystic duct occlusion. The gallbladder was removed and sent to the lab for pathology. Description of Procedure Procedure as well as risks, benefits, and alternatives were discussed with the patient. Written consent was obtained and placed in chart prior to procedure. 1.5 mL of indocyanine green was given intravenously in preop. Patient was brought back to surgical suite. She was placed supine on operating table. Time-out was done to confirm patient and procedure. She was then intubated by the anesthesia department. Her abdomen was then prepped and draped in sterile fashion using chlorhexidine prep. 0.5% bupivacaine was infiltrated locally at the site of each port placement. An 8 mm incision was made just superior to the umbilicus and a 5 mm Optiview trocar was then advanced through the abdominal layers under direct visualization. Once inside the abdominal cavity, carbon dioxide insufflation was used to create a pneumoperitoneum. The camera was inserted and the abdomen was inspected. No mediated abnormalities were noted. The patient was placed in 10? reverse Trendelenburg position and rotated 10? to the left. Two 8 mm incisions were made in the right lateral abdomen and 2 8 mm trocars were inserted under direct visualization. A 12 mm incision was made in the left lateral abdomen and a 12 mm trocar was inserted under direct visualization. The 5 mm Optiview trocar was then removed and another 8 mm trocar was inserted in its place. The robotic arms were then brought up to the patient's bedside and secured to each port. The camera and instruments were inserted. I then moved over to the robotic consult to take control of the camera and instruments. The gallbladder was grasped at the fundus and retracted cephalad. The infundibulum of the gallbladder was then grasped and retracted laterally. Hook electrocautery was then used to carefully dissect around the neck of the gallbladder. The cystic duct was identified and a window was created around it using hook electrocautery. The cystic artery was also identified and a window was created behind it using hook electrocautery. Critical view of safety was identified visualizing the cystic duct running directly into the neck of the gallbladder and the cystic artery running directly into the wall the gallbladder. The camera view was switched to firefly mode and the indocyanine green within the gallbladder and cystic duct was clearly visualized. No other structures were noted running into this region and there did not appear to be any obstruction of the cystic duct impeding flow of bile into the gallbladder. The camera mode was switched back to regular mode. Hemo lock clips were placed on both the cystic duct and cystic artery. Two clips were placed proximally and 1 distally. Hook electrocautery was then used to transect in between the
[2022-07-02] MEDS: fentaNYL CITRATE INJ (*CRX) 100 MCG/2 ML VIAL 25 MCG IV PUSH ×8 (16:03→16:57)
[2022-07-02] MEDS: MIDAZOLAM HCL (*CRX) 2 MG/2 ML VIAL IV PUSH (16:22)
[2022-07-02] MEDS: HYDROmorphone HCL INJ (*CRX) 1 MG/ML SYR 0.5 MG IV PUSH (17:04)
--- NOTE | 2022-07-02 17:13 | SUR.PHASEI ---
Patient used rescue inhaler in recovery for shortness of breath
[2022-07-02] MEDS: ONDANSETRON INJ 4 MG/2 ML VIAL IV PUSH (17:32)
[2022-07-02] MEDS: oxyCODONE HCL (*CRX) 5 MG TAB IR PO (17:32)
--- NOTE | 2022-07-02 17:53 | SUR.PHASEII ---
Vital signs stable, pain is tolerable at this time. Patient insistent on getting dressed and having IV removed. Waiting on ride ETA 15 minutes.
== END 2022-07-02 18:05 | disposition home or self-care (01) ==
PROVIDERS: PCP Internal Medicine; Visit Provider Surgery
PROC: 0FT44ZZ Resection of Gallbladder, Percutaneous Endoscopic Approach (ICD-10-PCS; CPT 47562; principal; 2022-07-02 14:30)
DX: K80.10 Calculus of gallbladder with chronic cholecystitis without obstruction (principal); R11.2 Nausea with vomiting, unspecified; R10.10 Upper abdominal pain, unspecified; F41.9 Anxiety disorder, unspecified; F32.A Depression, unspecified; F12.90 Cannabis use, unspecified, uncomplicated; F17.210 Nicotine dependence, cigarettes, uncomplicated; E66.9 Obesity, unspecified; Z68.32 Body mass index [BMI] 32.0-32.9, adult; Z79.82 Long term (current) use of aspirin
CPT/HCPCS: 47562; S2900; 36415; 82150; 86850; 86900; 86901; 88304; A9270; J0690; J1100; J1170; J1885; J2250; J2405; J2704; J2710; J3010; J7030; J7120

== ENCOUNTER 2023-04-08 17:09 | Emergency (ER) | payer OTHER, SELFPAY ==
--- NOTE | ~2023-04-08 | XR_ITS ---
EXAMINATION: XR hand RT min 3V INDICATION: Right hand pain TECHNIQUE: Three views of the right hand are obtained. COMPARISON: None available FINDINGS: No fracture, dislocation, or subluxation. The bones, soft tissues, and joint spaces are nor mal. IMPRESSION: 1. No acute osseous abnormality. Reviewed, dictated and finalized at location F.
--- NOTE | 2023-04-08 17:13 | ED.UPPEXIN ---
HPI - Extremity Injury (Upper) General Chief Complaint: Extremity Injury, Upper Stated Complaint: wc /right hand injury Time Seen by Provider: 04/08/23 17:13 Source: patient, family and RN notes reviewed History of Present Illness HPI narrative: Patient is a 32-year-old female presents to urgent care with complaints of right hand pain. Patient states that on Saturday she smashed her hand between a car and the wall. Patient states that she does have range of motion in the hand and did get an EMG study done for carpal tunnel. Patient states she did not have any issues with the EMG. Patient has not taken anything [id number] for her discomfort. Patient is right-hand dominant. No other acute complaints. No acute distress noted. Patient aware of the plan of care. Some parts of this dictation were generated by voice recognition software and may contain typographical and/or grammatical inaccuracies. Related Data Home Medications Medication Instructions Recorded Confirmed gabapentin 300 mg capsule 300 mg PO DAILY 04/08/23 04/08/23 Allergies Allergy/AdvReac Type Severity Reaction Status Date / Time aspirin Allergy Unknown Hives / Verified 04/08/23 17:30 Red Face Penicillins Allergy Unknown Other Verified 04/08/23 17:30 PMFSH Past Medical History Medical History Anxiety Depression Hx of migraines Marijuana use Surgical History Surgical History History of 2011 and 2019 Hx laparoscopic cholecystectomy 07/13/22 Family History Family History Mother Cervical cancer Diabetes mellitus Hypothyroidism Lung cancer Kidney carcinoma Hypertension Sibling Cervical cancer Hypothyroidism IBS (irritable bowel syndrome) Father History of blood clots Liver cancer Thyroid ca Diabetes mellitus Bone cancer Acute myocardial infarction Kidney failure Due to his cancer Hypertension Social History Social History Social History: daily caffeine use- 64 oz of soda Smoking packs per day: 0.5 Smoking cigarettes per day: 10.0 Years smoked: 16 Smoking pack-years: 8.00 Smoking status: Current every day smoker Tobacco type: cigarettes Second hand tobacco smoke exposure: Yes Alcohol intake: never Substance use: current Substance use type: marijuana Living arrangements: with family Additional living arrangements comments: SON 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 There is no relevant family history pertinent to the patient complaint. Exam Narrative: GENERAL: This is a well-nourished, well-developed patient, in no apparent distress. HEAD: normocephalic, atraumatic. EYES: PERRL. Sclera clear/white. Vision is grossly intact. EARS: External ears normal NOSE: External nose normal with no obvious nasal discharge, nares without redness, no rhinorrhea. THROAT: Mucous membranes moist NECK: Neck supple SKIN: warm, intact with no suspicious lesions or rash, good texture and turgor. NEURO: awake, alert, and oriented to person, place and time. There were no obvious focal neurologic abnormalities. EXTREMITIES: Old ecchymotic region to the dorsal aspect of the right hand. Range of motion within normal limits with mild exacerbated pain with making a fist. Positive strong right radial pulse with capillary refill less than 2 seconds Course Course Level of Care: Express Care Visit Vital Signs Vital signs: Vital Signs Temperature 97.9 F 04/08/23 17:27 Pulse Rate 88 04/08/23 17:27 Respiratory Rate 16 04/08/23 1
[2023-04-08 17:27] VITALS: BP 135/83; PULSE 88; RESP 16; TEMP 36.6; O2SAT 100
== END 2023-04-08 18:39 | disposition home or self-care (01) ==
PROVIDERS: Emergency Provider Nurse Practitioner Family; PCP Internal Medicine
DX: S60.221A Contusion of right hand, initial encounter (principal); X58.XXXA Exposure to other specified factors, initial encounter; F17.210 Nicotine dependence, cigarettes, uncomplicated; F12.90 Cannabis use, unspecified, uncomplicated
CPT/HCPCS: 73130; 99213; G0463

== ENCOUNTER 2024-04-22 11:36 | Emergency (ER) | payer OTHER, SELFPAY ==
[2024-04-22 11:42] VITALS: BP 131/94; PULSE 80; RESP 18; TEMP 36.6; O2SAT 100
--- NOTE | 2024-04-22 11:43 | ED.SKABFB ---
HPI - Skin/Abscess/Foreign Bdy General Chief complaint: Skin/Abscess/Foreign Body Stated complaint: Rash Time Seen by Provider: 04/22/24 11:58 Source: patient and RN notes reviewed Mode of arrival: ambulatory Limitations: no limitations History of Present Illness HPI narrative: 33-year-old female presents with concern for rash on bilateral arms. Reports she used tanning lotion that her mother made and then got this rash. She reports it is itchy. She denies any other rash anywhere else. She denies swollen lips, swollen tongue, trouble breathing. MD complaint: rash Related Data Home Medications Medication Instructions Recorded Confirmed bupropion HCl 150 mg 24 hr tablet, 150 mg PO DAILY 04/22/24 04/22/24 extended release Allergies Allergy/AdvReac Type Severity Reaction Status Date / Time aspirin Allergy Unknown Hives / Verified 04/22/24 11:44 Red Face Penicillins Allergy Unknown Other Verified 04/22/24 11:44 Review of Systems Review of Systems: CONSTITUTIONAL: Denies malaise, chills, sweats, or fever. EYES: Denies redness, or discharge. ENT: Denies rhinorrhea, congestion, swollen lips, swollen tongue CARDIOVASCULAR: Denies chest pain, palpitations, or edema. RESPIRATORY: Denies cough or dyspnea. GASTROINTESTINAL: Denies abdominal pain, nausea, vomiting SKIN: Reports itchy rash MUSCULOSKELETAL: Denies joint pain or myalgia. NEUROLOGIC: Denies headache. All systems reviewed & are unremarkable except as noted in HPI and below PMFSH Past Medical History Medical History Anxiety Depression Hx of migraines Marijuana use Surgical History Surgical History History of 2011 and 2019 Hx laparoscopic cholecystectomy 07/13/22 Family History Family History Mother Cervical cancer Diabetes mellitus Hypothyroidism Lung cancer Kidney carcinoma Hypertension Sibling Cervical cancer Hypothyroidism IBS (irritable bowel syndrome) Father History of blood clots Liver cancer Thyroid ca Diabetes mellitus Bone cancer Acute myocardial infarction Kidney failure Due to his cancer Hypertension Social History Social History Social History: daily caffeine use- 64 oz of soda Smoking packs per day: 0.5 Smoking cigarettes per day: 10.0 Years smoked: 16 Smoking pack-years: 8.00 Smoking status: Current every day smoker Tobacco type: cigarettes Second hand tobacco smoke exposure: Yes Alcohol intake: never Substance use: current Substance use type: marijuana Living arrangements: with family Additional living arrangements comments: SON 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 There is no relevant family history pertinent to the presenting complaint Exam Narrative: GENERAL: Well-appearing, well-nourished, and in no acute distress. HEAD: Normocephalic, atraumatic. EYES: PERRLA, conjunctivae clear, and EOMI. ENT: Mucous membranes moist. Oropharynx without edema, erythema or lesions. NECK: Supple. No lymphadenopathy CHEST: Clear to auscultation. No respiratory distress. HEART: Regular rate and rhythm. SKIN: Warm, dry. Patch of erythematous papules noted to the anterior upper arm bilaterally NEURO: Alert and oriented x3. PSYCH: Normal mood and affect Course Course Emergency Course: Patient is aware of diagnosis, understands and agrees to treatment plan. Anticipatory guidance given. Patient agrees to follow-up as directed and is aware of reasons to seek care at the emergency department. Portions of this record may have been
== END 2024-04-22 12:07 | disposition home or self-care (01) ==
PROVIDERS: Emergency Provider Nurse Practitioner
DX: L25.9 Unspecified contact dermatitis, unspecified cause (principal); F17.210 Nicotine dependence, cigarettes, uncomplicated; F12.90 Cannabis use, unspecified, uncomplicated; F41.9 Anxiety disorder, unspecified; F32.A Depression, unspecified
CPT/HCPCS: 99213; G0463

== ENCOUNTER 2024-12-23 17:24 | Emergency (ER) | payer MEDICAID, SELFPAY ==
--- NOTE | ~2024-12-23 | XR_ITS ---
EXAMINATION: XR hand RT min 3V DATE: 12/23/2024 17:44 INDICATION: Right hand pain. Fall. TECHNIQUE: 3 views of right hand were obtained. COMPARISON: Right hand radiograph 04/08/2023 FINDINGS: Alignment is normal. No fracture. Joint spaces are normal. IMPRESSION: 1. Normal right hand. Reviewed, dictated and finalized at location A. E[facility] IMPRESSION: 1. Normal right hand.
--- OUTSIDE RECORDS SUMMARY | 2024-12-23 17:27 | XMS_ITS | Data Portability ---
Author Organization [facility] Kendra Paulson Address [address] [place] [address] Care Team Providers Care Interventional Pain Physician Name Role Phone ROSS ESTRELLA Primary Care Provider Assessment No assessment recorded. Plan of Treatment Reminders Order Date Submit Date Provider Last Modified By Organization Details Last Modified Time Details Appointments None record ed. Lab CMP, serum or plasma 2022 023 [facility], [address] [facility], [facility], [place], [address], 3 07:12:29 TSH, ultra- sensit lluvia, serum 2022 023 [facility], [address] [facility], [facility], [place], [address], 3 08:41:14 CBC 2022 023 [facility], [address] [facility], [facility], [place], [address], 3 07:12:30 pregna ncy test, urine 2022 023 [facility] In-Office Order, Internal Use Only DO Not Attach Compendium DO Not Attach Compendium, Do Not Delete/merge, [id number] 3 13:49:10 urinal ysis comple te, reflex cultur e 2022 023 [facility], [address] [facility], [facility], [place], [address], 3 09:13:50 Referral neurol ogist referr al 2023 024 joanna Caballero MD, [address], [place], [address], 4 08:23:07 orthop edic surgeo n referr al 2023 024 CHAMBERLAIN Quincy Doe [employer], [address] [facility] [address], [place], [address], 4 12:32:32 neurol ogist referr al 2022 023 joanna Caballero MD, [address], [place], [address], 4 15:57:34 Procedures None record ed. Surgeries None record ed. Imaging CT, hand, w/o contra st 2022 023 [facility], 1 [facility] , [place], [address], 3 12:58:30 electr omyogr am + nerve conduc tion study 2022 023 [facility] Scheduling, 1 [facility] , [place], [address], 3 15:35:18 Medication Orders sumatr iptan 25 mg tablet 2023 024 [facility], [address] [place], [address], 4 10:35:37 gabape ntin 300 mg capsul e 2023 024 [facility], [address], [place], [address], 4 10:35:37 buprop ion HCl XL 150 mg 24 hr tablet , extend ed releas e 2023 024 jaylin [facility], [address] [place] [address], [address], 4 12:49:57 sumatr iptan 25 mg tablet 2022 023 [facility], [address] [place] [address], [address], 3 11:27:39 trazod one 50 mg tablet [address] [facility] [address] [facility], [address] [place] [address], [address], 4 12:12:40 buprop ion HCl XL 150 mg 24 hr tablet , extend ed releas e 2022 023 [facility] [address], [address] [place] [address], [address], 3 11:27:36 gabape ntin 300 mg capsul e 2022 023 [email or web address] [facility], [address] [place] [address], [address], 3 17:20:03 naprox en 375 mg tablet [address] [facility] [address] [facility], [address] [place] [address], [address], 4 12:12:35 Cipro 250 mg tablet 2022 023 [email or web address] [facility], [address] [place] [address], [address], 3 15:20:18 Patient TargetsNo targets recorded. Patient Instructions Encounter Date Encounter Id Patient Instructions Last Modified By Organization Details Last Modified Time 05/31/2023 [id number] A healthy lifestyle: care instructions ssuthan Not available 05/31/2023 15:51:05 deciding about using medicines to quit smoking ssuthan Not available 05/31/2023 15:51:05 Quitting Tobacco : Care Instructions ssuthan Not available 05/31/2023 15:51:05 07/22/2023 [id number] deciding about using medicines to quit smoking ssuthan Not available 07/22/2023 11:27:43 Quitting Tobacco : Care Instructions ssuthan Not available 07/22/2023 11:27:43 fainting: care instructions ssuthan Not available 07/22/2023 11:27:25 insomnia: care instructions ssuthan Not available 07/22/2023 11:27:26 01/03/2024 [id number] A healthy lifestyle: care instructions ssuthan Not available 01/03/2024 10:35:29 deciding about using medicines to quit smoking ssuthan Not available 01/03/2024 10:35:29 Quitting Tobacco : Care Instructions ssuthan Not available 01/03/2024 10:35:29 03/04/2024 [id number] Attending Physician Addendum I did not personally see or examine the patient with the resident. I was physically present to provide indirect supervision through entire encounter. I have reviewed the documentation and agree with the history, physical findings, work-up, and medical decision making as recorded. Gina Butts MD [email or web address] Not available 03/16/2024 15:13:27 Reason for Referral Neurologist Referral for Syn cope and collapse Referring Physician: Ross Estrella, Internal Medicine, Encounter Date: 07/22/2023 Neurologist Referral for His tory of migraine Referring Physician: Ross Estrella, Internal Medicine, Encounter Date: 01/03/2024 Orthopedic Surgeon Referral for Pain in right arm Referring Physician: Ross Estrella Internal Medicine, Encounter Date: 01/03/2024 Results Created Date Observation Date Name Description Value Unit Range Abnormal Flag Note LastModifiedBy Organization Detail LastModifiedTime 02/27/20 23 02/26/2023 LIPID PANEL cholesterol, total 156.6 mg/dL 140.0- 200.0 Not Available [facility] Department [address] [place], [address], 02/26/2023 19:08:45 02/27/20 23 02/26/2023 LIPID PANEL triglyceride s 112 mg/dL <=[address] [facility] Department [address] [place] [address], [address], 02/26/2023 19:08:45 02/27/20 23 02/26/2023 LIPID PANEL HDL cholesterol 37.9 mg/dL 40.0-1 00.0 below low normal Not Available [facility] Department [address] [place] [address], [address], 02/26/2023 19:08:45 02/27/20 23 02/26/2023 LIPID PANEL VLDL cholesterol rafaela 22.40 mg/dL 5.00-4 0.00 Not Available [facility] Department [address] [place] [address], [address], 02/26/2023 19:08:45 02/27/20 23 02/26/2023 LIPID PANEL LDL chol calc ([facility]) 98.2 Not Available [facility] Department [address] [place] [address], [address], 02/26/2023 19:08:45 02/27/20 23 02/26/2023 COMP. METAB OLIC PANEL (14) glucose 77 mg/dL 65-99 ANION GP 13.0 mmol/ L N OSMOL 269.0 mOsM/ L L REFER ENCE RANGE : 275.0 -301. 0 Not Available [facility] Department [address] [place] [address], [address], 02/26/2023 19:08:46 02/27/20 23 02/26/2023 COMP. METAB OLIC PANEL (14) BUN 8 mg/dL 8-26 Not Available [facility] Department [address] [place] [address], [address], 02/26/2023 19:08:46 02/27/20 23 02/26/2023 COMP. METAB OLIC PANEL (14) creatinine 0.69 mg/dL 0.50-1 .40 Not Available [facility] Department [address] [place] [address], [address], 02/26/2023 19:08:46 02/27/20 23 02/26/2023 COMP. METAB OLIC PANEL (14) eGFR 120 mL/mi n/1.7 3 >=60 Not Available [facility] Department [address] [place] [address], [address], 02/26/2023 19:08:46 02/27/20 23 02/26/2023 COMP. METAB OLIC PANEL (14) BUN/creatini ne ratio 11.[address] [facility] Department [address] [place] [address], [address], 02/26/2023 19:08:46 02/27/20 23 02/26/2023 COMP. METAB OLIC PANEL (14) sodium 136.0 mmol/ L 136.0- 144.0 Not Available [facility] Department [address] [place] [address], [address], 02/26/2023 19:08:46 02/27/20 23 02/26/2023 COMP. METAB OLIC PANEL (14) potassium 4.3 mmol/ L 3.5-5. 3 Not Available [facility] Department [address] [place], [address], 02/26/2023 19:08:46 02/27/20 23 02/26/2023 COMP. METAB OLIC PANEL (14) chloride 103 mmol/ l 101-11 1 Not Available [facility] Department [address] [place] [address], [address], 02/26/2023 19:08:46 02/27/20 23 02/26/2023 COMP. METAB OLIC PANEL (14) carbon dioxide, total 25.3 mmol/ L 21.0-3 2.0 Not Available [facility] Department [address] [place] [address], [address], 02/26/2023 19:08:46 02/27/20 23 02/26/2023 COMP. METAB OLIC PANEL (14) calcium 9.5 mg/dL 8.2-10 .0 Not Available [facility] Department [address] [place], [address], 02/26/2023 19:08:46 02/27/20 23 02/26/2023 COMP. METAB OLIC PANEL (14) protein, total 7.2 g/dL 6.7-8. 2 Not Available [facility] Department [address] [place], [address], 02/26/2023 19:08:46 02/27/20 23 02/26/2023 COMP. METAB OLIC PANEL (14) albumin 4.6 g/dL 3.5-5. 5 Not Available [facility] Department [address] [place] [address], [address], 02/26/2023 19:08:46 02/27/20 23 02/26/2023 COMP. METAB OLIC PANEL (14) globulin, total 2.6 g/dL 1.5-4. 5 Not Available [facility] Department [address] [place], [address], 02/26/2023 19:08:46 02/27/20 23 02/26/2023 COMP. METAB OLIC PANEL (14) A/G ratio 1.8 Not Available [facility] Department [address] [place], [address], 02/26/2023 19:08:46 02/27/20 23 02/26/2023 COMP. METAB OLIC PANEL (14) bilirubin, total 0.4 mg/dL 0.0-1. 2 Not Available [facility] Department [address] [place], [address], 02/26/2023 19:08:46 02/27/20 23 02/26/2023 COMP. METAB OLIC PANEL (14) alkaline phosphatase 67.4 IU/L 42.0-1 21.0 Not Available [facility] Department [address] [place] [address], [address], 02/26/2023 19:08:46 02/27/20 23 02/26/2023 COMP. METAB OLIC PANEL (14) AST (SGOT) 13.1 U/L 10.0-4 2.0 Not Available [facility] Department [address] [place], [address], 02/26/2023 19:08:46 02/27/20 23 02/26/2023 COMP. METAB OLIC PANEL (14) ALT (SGPT) 12.2 U/L 10.0-6 0.0 Not Available [facility] Department [address] [place], [address], 02/26/2023 19:08:46 02/27/20 23 02/26/2023 CBC WITH DIFFE RENTI AL/PL ATELE T WBC 5.1 K/uL 3.4-10 .8 Not Available [facility] Department [address] [place], [address], 02/26/2023 19:08:47 02/27/20 23 02/26/2023 CBC WITH DIFFE RENTI AL/PL ATELE T RBC 5.0 M/uL 4.2-5. 4 Not Available [facility] Department [address] [place], [address], 02/26/2023 19:08:47 02/27/20 23 02/26/2023 CBC WITH DIFFE RENTI AL/PL ATELE T hemoglobin 13.7 g/dL 11.5-1 5.5 Not Available [facility] Department [address] [place], [address], 02/26/2023 19:08:47 02/27/20 23 02/26/2023 CBC WITH DIFFE RENTI AL/PL ATELE T hematocrit 42.5 % 36.0-4 8.0 Not Available [facility] Department [address] [place], [address], 02/26/2023 19:08:47 02/27/20 23 02/26/2023 CBC WITH DIFFE RENTI AL/PL ATELE T MCV 85 fL 80-95 Not Available [facility] Department [address] [place], [address], 02/26/2023 19:08:47 02/27/20 23 02/26/2023 CBC WITH DIFFE RENTI AL/PL ATELE T MCH 27 pg 27-32 Not Available [facility] Department [address] [place], [address], 02/26/2023 19:08:47 02/27/20 23 02/26/2023 CBC WITH DIFFE RENTI AL/PL ATELE T MCHC 32 g/dL 32-36 Not Available [facility] Department [address] [place], [address], 02/26/2023 19:08:47 02/27/20 23 02/26/2023 CBC WITH DIFFE RENTI AL/PL ATELE T RDW 14.3 % 11.5-1 4.5 Not Available [facility] Department [address] [place], [address], 02/26/2023 19:08:47 02/27/20 23 02/26/2023 CBC WITH DIFFE RENTI AL/PL ATELE T platelets 293 K/uL 155-37 9 MPV 10.7 FL 8.9-1 2.7 N Not Available [facility] Department [address] [place], [address], 02/26/2023 19:08:47 02/27/20 23 02/26/2023 CBC WITH DIFFE RENTI AL/PL ATELE T neutrophils 48.1 % 40.0-7 4.0 Not Available [facility] Department [address] [place], [address], 02/26/2023 19:08:47 02/27/20 23 02/26/2023 CBC WITH DIFFE RENTI AL/PL ATELE T lymphs 41.7 % 14.0-4 6.0 Not Available [facility] Department [address] [place], [address], 02/26/2023 19:08:47 02/27/20 23 02/26/2023 CBC WITH DIFFE RENTI AL/PL ATELE T monocytes 5.1 % 4.0-12 .0 Not Available [facility] Department [address] [place], [address], 02/26/2023 19:08:47 02/27/20 23 02/26/2023 CBC WITH DIFFE RENTI AL/PL ATELE T eos 4 % 0-5 Not Available [facility] Department [address] [place], [address], 02/26/2023 19:08:47 02/27/20 23 02/26/2023 CBC WITH DIFFE RENTI AL/PL ATELE T basos 0.4 % 0.0-1. 0 Not Available [facility] Department [address] [place], [address], 02/26/2023 19:08:47 02/27/20 23 02/26/2023 CBC WITH DIFFE RENTI AL/PL ATELE T neutrophils (absolute) 2.5 K/uL 1.4-7. 0 Not Available [facility] Department [address] [place], [address], 02/26/2023 19:08:47 02/27/20 23 02/26/2023 CBC WITH DIFFE RENTI AL/PL ATELE T lymphs (absolute) 2.1 K/uL 0.7-3. 1 Not Available [facility] Department [address] [place], [address], 02/26/2023 19:08:47 02/27/20 23 02/26/2023 CBC WITH DIFFE RENTI AL/PL ATELE T monocytes(ab solute) 0.3 K/uL 0.1-0. 9 Not Available [facility] Department [address] [place], [address], 02/26/2023 19:08:47 02/27/20 23 02/26/2023 CBC WITH DIFFE RENTI AL/PL ATELE T eos (absolute) 0.2 K/uL 0.0-0. 4 Not Available [facility] Department [address] [place], [address], 02/26/2023 19:08:47 02/27/20 23 02/26/2023 CBC WITH DIFFE RENTI AL/PL ATELE T baso (absolute) 0.0 K/uL 0.0-0. 3 Not Available [facility] Department [address] [place], [address], 02/26/2023 19:08:47 02/27/20 23 02/26/2023 CBC WITH DIFFE RENTI AL/PL ATELE T immature granulocytes 1.2 % Not Available [facility] Department [address] [place], [address], 02/26/2023 19:08:47 02/27/20 23 02/26/2023 CBC WITH DIFFE RENTI AL/PL ATELE T immature grans (abs) 0.1 K/uL Not Available [facility] Department [address] [place], [address], 02/26/2023 19:08:47 02/27/20 23 02/26/2023 CBC WITH DIFFE RENTI AL/PL ATELE T NRBC 0 % Not Available [facility] Department [address] [place], [address], 02/26/2023 19:08:47 02/27/2002/27/2023 TSH TSH 0.903 uIU/m L 0.450- 4.500 Not Available [facility] ([facility]) [address] [facility], [place], [address], 02/27/2023 06:15:26 03/05/20 23 03/06/2023 MICRO SCOPI C EXAMI NATIO N WBC 0-5 /hpf 0-5 Not Available [facility] ([facility]) [address] [facility], [place], [address], 03/07/2023 09:13:50 03/05/20 23 03/06/2023 MICRO SCOPI C EXAMI NATIO N RBC 11-30 /hpf 0-2 abnormal Not Available [facility] ([facility]) [address] [facility], [place], [address], 03/07/2023 09:13:50 03/05/20 23 03/06/2023 MICRO SCOPI C EXAMI NATIO N epithelial cells (non renal) 0-10 /hpf 0-10 Not Available [facility] ([facility]) [address] [facility], [place], [address], 03/07/2023 09:13:50 03/05/20 23 03/06/2023 MICRO SCOPI C EXAMI NATIO N casts None seen /lpf nonese en Not Available [facility] ([facility]) [address] [facility], [place], [address], 03/07/2023 09:13:50 03/05/20 23 03/06/2023 MICRO SCOPI C EXAMI NATIO N mucus threads Presen t notest ab. Not Available [facility] ([facility]) [address] [place], [address], 03/07/2023 09:13:50 03/05/20 23 03/06/2023 MICRO SCOPI C EXAMI NATIO N bacteria Few nonese en/few Not Available [facility] ([facility]) [address] [facility], [place], [address], 03/07/2023 09:13:50 03/05/20 23 03/06/2023 UA/M W/RFL X CULTU RE, COMP specific gravity 1.024 1.005- 1.030 Not Available [facility] ([facility]) [address] [facility], [place], [address], 03/07/2023 09:13:50 03/05/20 23 03/06/2023 UA/M W/RFL X CULTU RE, COMP pH 6.5 5.0-7. 5 Not Available [facility] ([facility]) [address] [facility], [place], [address], 03/07/2023 09:13:50 03/05/20 23 03/06/2023 UA/M W/RFL X CULTU RE, COMP urine-color Yellow yellow Not Available [facility] ([facility]) [address] [facility], [place], [address], 03/07/2023 09:13:50 03/05/20 23 03/06/2023 UA/M W/RFL X CULTU RE, COMP appearance Clear clear Not Available [facility] ([facility]) [address] [facility], [place], [address], 03/07/2023 09:13:50 03/05/20 23 03/06/2023 UA/M W/RFL X CULTU RE, COMP WBC esterase Negati ve negati ve Not Available [facility] ([facility]) [address] [place], [address], 03/07/2023 09:13:50 03/05/20 23 03/06/2023 UA/M W/RFL X CULTU RE, COMP protein Negati ve negati ve/tra ce Not Available [facility] ([facility]) [address] [place], [address], 03/07/2023 09:13:50 03/05/20 23 03/06/2023 UA/M W/RFL X CULTU RE, COMP glucose Negati ve negati ve Not Available [facility] ([facility]) [address] [place], [address], 03/07/2023 09:13:50 03/05/20 23 03/06/2023 UA/M W/RFL X CULTU RE, COMP ketones Negati ve negati ve Not Available [facility] ([facility]) [address] [facility], [place], [address], 03/07/2023 09:13:50 03/05/20 23 03/06/2023 UA/M W/RFL X CULTU RE, COMP occult blood 3+ negati ve abnormal Not Available [facility] ([facility]) [address] [place], [address], 03/07/2023 09:13:50 03/05/20 23 03/06/2023 UA/M W/RFL X CULTU RE, COMP bilirubin Negati ve negati ve Not Available [facility] ([facility]) [address] [place], [address], 03/07/2023 09:13:50 03/05/20 23 03/06/2023 UA/M W/RFL X CULTU RE, COMP urobilinogen ,semi-qn 0.2 mg/dL 0.2-1. 0 Not Available [facility] ([facility]) [address] [place], [address], 03/07/2023 09:13:50 03/05/20 23 03/06/2023 UA/M W/RFL X CULTU RE, COMP nitrite, urine Negati ve negati ve Not Available [facility] ([facility]) [address] [place], [address], 03/07/2023 09:13:50 03/05/20 23 03/06/2023 UA/M W/RFL X CULTU RE, COMP microscopic examination See below: Micro scopi c was indic ated and was perfo rmed. Not Available [facility] ([facility]) [address] [place], [address], 03/07/2023 09:13:50 03/05/20 23 03/06/2023 UA/M W/RFL X CULTU RE, COMP urinalysis reflex Commen t This speci men has refle xed to a Urine Cultu re. Not Available [facility] ([facility]) [address] [facility], [place], [address], 03/07/2023 09:13:50 03/05/20 23 03/07/2023 URINE CULTU RE, COMPR EHENS LLUVIA urine culture,comp rehensive Final report Not Available [facility] ([facility]) [address] [facility], [place], [address], 03/07/2023 09:13:51 03/05/20 23 03/07/2023 URINE CULTU RE, COMPR EHENS LLUVIA result 1 Commen t Mixed uroge nital rosemarie 3,000 Colon ies/m L Not Available [facility] ([facility]) [address] [facility], [place], [address], 03/07/2023 09:13:51 07/22/20 23 07/23/2023 COMP. METAB OLIC PANEL (14) glucose 69 mg/dL 70-99 below low normal Not Available [facility] ([facility]) [address] [place], [address], 07/23/2023 07:12:29 07/22/20 23 07/23/2023 COMP. METAB OLIC PANEL (14) BUN 5 mg/dL 6-20 below low normal Not Available [facility] ([facility]) [address] [place], [address], 07/23/2023 07:12:29 07/22/20 23 07/23/2023 COMP. METAB OLIC PANEL (14) creatinine 0.63 mg/dL 0.57-1 .00 Not Available [facility] ([facility]) [address] [place], [address], 07/23/2023 07:12:29 07/22/20 23 07/23/2023 COMP. METAB OLIC PANEL (14) eGFR 122 mL/mi n/1.7 3 >59 Not Available [facility] ([facility]) [address] [facility], [place], [address], 07/23/2023 07:12:29 07/22/20 23 07/23/2023 COMP. METAB OLIC PANEL (14) BUN/creatini ne ratio 8 9-23 below low normal Not Available [facility] ([facility]) [address] [facility], [place], [address], 07/23/2023 07:12:29 07/22/20 23 07/23/2023 COMP. METAB OLIC PANEL (14) sodium 140 mmol/ L 134-14 4 Not Available [facility] ([facility]) [address] [facility], [place], [address], 07/23/2023 07:12:29 07/22/20 23 07/23/2023 COMP. METAB OLIC PANEL (14) potassium 4.3 mmol/ L 3.5-5. 2 Not Available [facility] ([facility]) [address] [facility], [place], [address], 07/23/2023 07:12:29 07/22/20 23 07/23/2023 COMP. METAB OLIC PANEL (14) chloride 105 mmol/ L 96-106 Not Available [facility] ([facility]) [address] [place], [address], 07/23/2023 07:12:29 07/22/20 23 07/23/2023 COMP. METAB OLIC PANEL (14) carbon dioxide, total 23 mmol/ L 20-29 Not Available [facility] ([facility]) [address] [facility], [place], [address], 07/23/2023 07:12:29 07/22/20 23 07/23/2023 COMP. METAB OLIC PANEL (14) calcium 9.0 mg/dL 8.7-10 .2 Not Available [facility] ([facility]) [address] [facility] [place], [address], 07/23/2023 07:12:29 07/22/20 23 07/23/2023 COMP. METAB OLIC PANEL (14) protein, total 6.6 g/dL 6.0-8. 5 Not Available [facility] ([facility]) [address] [facility], [place], [address], 07/23/2023 07:12:29 07/22/20 23 07/23/2023 COMP. METAB OLIC PANEL (14) albumin 4.4 g/dL 3.9-4. 9 Not Available [facility] ([facility]) [address] [facility], [place], [address], 07/23/2023 07:12:29 07/22/20 23 07/23/2023 COMP. METAB OLIC PANEL (14) globulin, total 2.2 g/dL 1.5-4. 5 Not Available [facility] ([facility]) [address] [facility] [place], [address], 07/23/2023 07:12:29 07/22/20 23 07/23/2023 COMP. METAB OLIC PANEL (14) A/G ratio 2.0 1.2-2. 2 Not Available [facility] ([facility]) [address] [facility] [place], [address], 07/23/2023 07:12:29 07/22/20 23 07/23/2023 COMP. METAB OLIC PANEL (14) bilirubin, total 0.3 mg/dL 0.0-1. 2 Not Available [facility] ([facility]) [address] [facility] [place], [address], 07/23/2023 07:12:29 07/22/20 23 07/23/2023 COMP. METAB OLIC PANEL (14) alkaline phosphatase 68 IU/L 44-121 Not Available [facility]) [address] [facility], [place], [address], 07/23/2023 07:12:29 07/22/20 23 07/23/2023 COMP. METAB OLIC PANEL (14) AST (SGOT) 15 IU/L 0-40 Not Available [facility] ([facility]) [address] [facility], [place], [address], 07/23/2023 07:12:29 07/22/20 23 07/23/2023 COMP. METAB OLIC PANEL (14) ALT (SGPT) 14 IU/L 0-32 Not Available [facility] ([facility]) [address] [facility], [place], [address], 07/23/2023 07:12:29 07/22/20 23 07/23/2023 CBC, PLATE LET, NO DIFFE RENTI AL WBC 6.4 x10e3 /uL 3.4-10 .8 Not Available [facility] ([facility]) [address] [facility], [place], [address], 07/23/2023 07:12:30 07/22/2007/23/2023 CBC, PLATE LET, NO DIFFE RENTI AL RBC 4.89 x10e6 /uL 3.77-5 .28 Not Available [facility] ([facility]) [address] [facility], [place], [address], 07/23/2023 07:12:30 07/22/2007/23/2023 CBC, PLATE LET, NO DIFFE RENTI AL hemoglobin 14.5 g/dL 11.1-1 5.9 Not Available [facility] ([facility]) [address] [facility], [place], [address], 07/23/2023 07:12:30 07/22/20 23 07/23/2023 CBC, PLATE LET, NO DIFFE RENTI AL hematocrit 43.1 % 34.0-4 6.6 Not Available [facility] ([facility]) [address] [facility], [place], [address], 07/23/2023 07:12:30 07/22/2007/23/2023 CBC, PLATE LET, NO DIFFE RENTI AL MCV 88 fL 79-97 Not Available [facility] ([facility]) [address] [facility], [place], [address], 07/23/2023 07:12:30 07/22/2007/23/2023 CBC, PLATE LET, NO DIFFE RENTI AL MCH 29.7 pg 26.6-3 3.0 Not Available [facility] ([facility]) [address] [place], [address], 07/23/2023 07:12:30 07/22/2007/23/2023 CBC, PLATE LET, NO DIFFE RENTI AL MCHC 33.6 g/dL 31.5-3 5.7 Not Available [facility] ([facility]) [address] [facility], [place], [address], 07/23/2023 07:12:30 07/22/2007/23/2023 CBC, PLATE LET, NO DIFFE RENTI AL RDW 13.1 % 11.7-1 5.4 Not Available [facility] ([facility]) [address] [place], [address], 07/23/2023 07:12:30 07/22/2007/23/2023 CBC, PLATE LET, NO DIFFE RENTI AL platelets 270 x10e3 /uL 150-45 0 Not Available [facility] ([facility]) [address] [place], [address], 07/23/2023 07:12:30 07/22/2007/23/2023 TSH RFX ON ABNOR MAL TO FREE T4 TSH 1.130 uIU/m L 0.450- 4.500 Not Available [facility] ([facility]) [address] [place], [address], 07/23/2023 08:41:14 07/22/2007/22/2023 pregn silvana test, urine HCG negati ve Not Available In-Office Order Internal Use Only DO Not Attach Compendium DO Not Attach Compendium, Do Not Delete/merge, [id number] 07/22/2023 11:26:55 04/04/20 23 04/04/2023 elect romyo gram + nerve condu ction study No observ ation record ed. [email or web address] Maury [facility] Scheduling 1 [facility] [place] [place], [address], 04/11/2023 15:36:36 04/09/20 23 04/08/2023 XR, hand No observ ation record ed. jaylin Batista [facility] [address], [place], [address], 04/19/2023 14:53:20 06/19/20 23 06/19/2023 elect romyo gram + nerve condu ction study No observ ation record ed. onur Mendiola [facility] Scheduling 1 [facility] [place], [address], 07/02/2023 11:26:06 06/20/20 23 06/19/2023 CT, hand, w/o contr ast No observ ation record ed. onur Maury [facility] 1 [facility] [place], [address], 07/02/2023 11:26:14 Result Notes None recorded. Problems Name Problem SNOMED Code Status Onset Date Resolution Date Notes Provider Name and Address Organization Details Recorded Time Body mass index 30+ - obesity 419590788 Active 2017 Ross Estrella MD Attn: Accounting, [address] [place], [address], [facility] - [facility] 8 15:13:31 Sleep pattern disturba iae 91476738 Completed 201707/29/2020 Ross Estrella MD Attn: Accounting, [address] [place], [place], [address] [place] [address], [place] [facility] 0 12:17:00 Cannabis dependen ce 61381482 Active 2019 smokes about 1g/wk Jose Juan Zamarripa MD Attn: Accounting, [address] [facility], [place], [place], [address] [place] [address], [place] [facility] 4 12:30:09 Solitary nodule of lung 901620016 Active 2019 Ross Estrella MD Attn: Accounting, [address] [facility], [place], [place], [address] [place] [address], [place] [facility] 0 15:24:19 History of migraine 123700052 Active 2019 Ross Estrella MD Attn: Accounting, [address] [place], [place], [address] [place] [address], [place] [facility] 0 12:15:34 Marijuan a user 641257532 Active 2019 Ross Estrella MD Attn: Accounting, [address] [place], [place], [address] [place] [address], [place] [facility] 0 12:16:59 Sleep pattern disturba nce 25965009 Active 2019 Ross Estrella MD Attn: Accounting, [address] [place], [place], [address] [place] [address], [place] [facility] 0 12:17:00 Generali zed aches and pains 26588780 Completed 07/29/2020 Ross Estrella MD Attn: Accounting, [address]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 Ceballosp 05/31/2023 1 [facility] - DOS ON OR AFTER 21 (MEDICAID REPLACEMENT - HMO) Kianna Ceballos phy [id number] Kianna García hy 07/22/2023 1 [facility] - DOS ON OR AFTER 21 (MEDICAID REPLACEMENT - HMO) Kianna Ceballos phy [id number] Kianna García hy 01/03/2024 1 [facility] - DOS ON OR AFTER 21 (MEDICAID REPLACEMENT - HMO) Kianna Ceballos phy [id number] Kianna Ceballosp hy 03/04/2024 1 [facility] - DOS ON OR AFTER 21 (MEDICAID REPLACEMENT - HMO) Kianna Ceballos phy [id number] Kianna Ceballosp hy Notes Date Note Type Note Provider Name and Address Organization Details Recorded Time 3 text/html DysuriaReported bypatient.Quality:press ure Duration:intermittent Timing:started 2 days ago Associated Symptoms:no fever; no blood in the urine;flank pain(R/side)Notes:Lowell corado fever/chills Yaima Ruby MA [facility], [place] - [place] 03/11/2023 11:52:48 3 text/html Generic HPI TemplateReported bypatient.Notes:pain in right arm keeps going numbPer the pt feels numb time to time R/2nd & 3rd digits-needs to shake it up to wake-noticed 2 months-worse at night. No similar issue before. Laying on R/right side also make it worse- No issue with shoulder J movement nor the neck05/31/23Had NCS April-R/median N sensory entrapment , referred to Ortho-since had injury to R/hand on 04/05/23 (smashed between cart and a wall) X ray was OK @ wants ortho us evaluate & refer her back.Per the pt wants further w/u to her hand as she is still pain along R/5th metacarpal and has difficulty closing cap ectNot any better since it happened 8 wks agoNot seen workman comp doctor- 'was not told'- Pt was explained it happened while at workPt denies having numbness than what she had beforeDenies neck issue nor other injury 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, [place], [address], [facility] 05/31/2023 16:49:13 3 text/html Anxiety/DepressionRepor anthony bypatient.Quality:sympt oms worse during the day Severity:denies suicidal ideations; does not interfere with activities of daily living Duration:stablizing Onset/Timing:gradual Context:trouble at work Modifying Factors:counselling; medications as directed Associated Symptoms:denies homicidal ideations; mood good; no crying spells;insomnia(staying sleep)Generic HPI TemplateReported bypatient.Notes:07/22/23 fainted 07/17/23c/o:'Pt states that last week she last remembers walking into her kitchen and woke up on the floor. Pt states that she was gasping for air and per her son eyes were completely white. Pt states she heard what sounded like trains in her ears and could not hear anything.'Per the ptUsed to see , getting Rx with 'nerve block' for migrainesDoes have lots of stress latelyPt had a meal 5PM the night before -?hypoglycemia vs -on implantpt denies having palpitation nor chest painrolled her eyes also defecatedSweating +denies weakness Ross Estrella MD Attn: Accounting,[address] [facility], [place], [address], [facility] 07/22/2023 12:57:15 4 text/html Anxiety/DepressionRepor anthony bypatient.Quality:sympt oms worse during the day Severity:denies suicidal ideations; does not interfere with activities of daily living Duration:stablizing Onset/Timing:gradual Context:trouble at work Modifying Factors:counselling; medications as directed Associated Symptoms:denies homicidal ideations; mood good; no crying spells;insomnia(staying sleep)Notes:01/03/24Bupro prion helped her better with less frequent migrainesGeneric HPI TemplateReported bypatient.Notes:07/22/23 fainted 07/17/23c/o:'Pt states that last week she last remembers walking into her kitchen and woke up on the floor. Pt states that she was gasping for air and per her son eyes were completely white. Pt states she heard what sounded like trains in her ears and could not hear anything.'Per the ptUsed to see , getting Rx with 'nerve block' for migrainesDoes have lots of stress latelyPt had a meal 5PM the night before -?hypoglycemia vs -on implantpt denies having palpitation nor chest painrolled her eyes also defecatedSweating +denies weakness01/03/24didn't do any w/u of CT ect nor seen the Neuro-'issue with insurance'Otherwise feeling well lately-quit smoking since Sep 19ill pain at R/wrist +Per NCS' A nerve conduction study of the right upper extremity was performed. Inthis extremity the right median and ulnar motor and sensory nerves andradial sensory nerves were examined.EMG examination the right upper extremity was performed using a concentricneedle and the following muscles were sampled right 1st dorsalinterosseous abductor pollicis brevis pronator teres biceps tricepsdeltoid middle Andlower cervical paraspinal muscles.Abnormalities on nerve conduction velocity test included the presence of adelay in the right median snap latency at 2.9 millisecond the normal beingless than 2.2 milliseconds. There was also a reduction in the rightmedian compound muscle action potential amplitudes at 3.2 mV at the wrist2.7 mV at the elbow with a normal compound muscle action potentialamplitudes of the right median nerve a greater than 5 mV.'Wants referral to Orftho again and gabapentin refill Ross Estrella MD Attn: Accounting,[address] [place], [address], [facility] 01/03/2024 12:50:04 4 text/html pt is a 33 yo F w/ a h/o MJ use, obesity, migraines, and former tobacco use who presents for pre-surgical clearance. Patient does not have any family history of cardiac disease, sudden cardiac , personal history of coronary disease, or pulmonary disease. Patient states that she has undergone surgery in the past, has tolerated anesthesia, has never had any postoperative complications with anesthesia, no history of any drug allergies. Patient states that she is supposed to undergo carpal tunnel release surgery tomorrow. Denies FERNANDEZ, blurred vision, neck pain, fevers, fatigue, night sweats, CP, SOB, NVDC, and rashes. Gina Butts MD Attn: Accounting,[address] [facility], [place], [address], [facility] 03/16/2024 15:13:36 OBGyn Episode Ob Episode Information Episode Created Date Number of Fetuses Patient Bloodtype Patient rh Status Prepregnancy Weight lbs Domestic Partner Domestic Partner Phone Father Name Economic Research Analyst Status 03/04/20 24 1 CLOSED Fetus Data First Name Last Name Admitted to NICU Weight (g) Sex Living Outcome Pediatric Complications Fetus ID Race Codes Race Delivery Type 3118.44 5 M Full Term [id number] Checo Calculation Initial Checo Date Initial Exam Date Initial Exam Provider Initial Ultrasound Date Last Menstrual Period Date Ultra Sound Weeks Gestation 0 Eighteen To Twenty Week Checo Update Ultra Sound Date Fundal Height At Umbil Quickening Date Ultra Sound Latest Weeks Gestation Final Checo Confirmed By Final Checo Confirmed Date Final Checo Date Ultra Sound Latest Days Gestation 0 0 Menstrual History Last Menstrual Date Menses Monthly On Bcp Conception Prior Menses Frequency Hcg Plus Date Menarche Onset Age Delivery Information Delivery Date Delivery Type Labor Anesthesia Weeks Gestation Incision Type Labor Labor Length Hrs Delivered By Post Complications Tubal Sterilization Discharge Date Comments 0 Discharge Information Feeding Method Contraceptive Method Maternal HG B and HCT Levels Ob Episode Information Episode Created Date Number of Fetuses Patient Bloodtype Patient rh Status Prepregnancy Weight lbs Domestic Partner Domestic Partner Phone Father Name Economic Research Analyst Status 03/04/20 24 1 CLOSED Fetus Data First Name Last Name Admitted to NICU Weight (g) Sex Living Outcome Pediatric Complications Fetus ID Race Codes Race Delivery Type F , Spontane ous 30196 Checo Calculation Initial Checo Date Initial Exam Date Initial Exam Provider Initial Ultrasound Date Last Menstrual Period Date Ultra Sound Weeks Gestation 0 Eighteen To Twenty Week Checo Update Ultra Sound Date Fundal Height At Umbil Quickening Date Ultra Sound Latest Weeks Gestation Final Checo Confirmed By Final Checo Confirmed Date Final Checo Date Ultra Sound Latest Days Gestation 0 0 Menstrual History Last Menstrual Date Menses Monthly On Bcp Conception Prior Menses Frequency Hcg Plus Date Menarche Onset Age Delivery Information Delivery Date Delivery Type Labor Anesthesia Weeks Gestation Incision Type Labor Labor Length Hrs Delivered By Post Complications Tubal Sterilization Discharge Date Comments 9 20 miscarri a ge Discharge Information Feeding Method Contraceptive Method Maternal HG B and HCT Levels Ob Episode Information Episode Created Date Number of Fetuses Patient Bloodtype Patient rh Status Prepregnancy Weight lbs Domestic Partner Domestic Partner Phone Father Name Economic Research Analyst Status 03/04/20 24 1 CLOSED Fetus Data First Name Last Name Admitted to NICU Weight (g) Sex Living Outcome Pediatric Complications Fetus ID Race Codes Race Delivery Type 3089.86 8704 M Full Term [id number] Only Checo Calculation Initial Checo Date Initial Exam Date Initial Exam Provider Initial Ultrasound Date Last Menstrual Period Date Ultra Sound Weeks Gestation 0 Eighteen To Twenty Week Checo Update Ultra Sound Date Fundal Height At Umbil Quickening Date Ultra Sound Latest Weeks Gestation Final Checo Confirmed By Final Checo Confirmed Date Final Checo Date Ultra Sound Latest Days Gestation 0 0 Menstrual History Last Menstrual Date Menses Monthly On Bcp Conception Prior Menses Frequency Hcg Plus Date Menarche Onset Age Delivery Information Delivery Date Delivery Type Labor Anesthesia Weeks Gestation Incision Type Labor Labor Length Hrs Delivered By Post Complications Tubal Sterilization Discharge Date Comments 2 Discharge Information Feeding Method Contraceptive Method Maternal HG B and HCT Levels
--- OUTSIDE RECORDS SUMMARY | 2024-12-23 17:27 | XMS_ITS | Referral Summary ---
Author Organization [facility] Address [address] [place] [address] Care Team Providers Care Armature Winder Repairer Name Role Phone Jimmie Lee MD Primary Care Provider [phone] Source Comments [facility],non-owned Affiliates and Associated Physician Practices is amultiple site organization consisting of ambulatory clinics and hospital sitesin [place], [place], [place] and [place]. This disclosure is being madepursuant to the Care Everywhere program and may not contain all information available regarding this patient. Last updated 18.[facility] [employer] Active Problems Patient Care Coordination No te Formatting of this note migh t be different from the original. Nopp/mfcc 12/2018 Problem Noted Date Diagnosed Date Abnormal genetic test in Social History Tobacco Use Types Packs/Day Years Used Date Smoking Tobacco: Never Assessed Sex and Gender Information Value Date Recorded Sex Assigned at Not on file Gender Identity Not on file Sexual Orientation Not on file Plan of Treatment Not on file Care Teams Armature Winder Repairer Relationship Specialty Start Date End Date Jimmie Lee MD [address] [place] [phone] PCP - General 07/06/22
--- OUTSIDE RECORDS SUMMARY | 2024-12-23 17:27 | XMS_ITS | Patient Health Summary ---
Author Organization [facility] Address [address] [facility] [place] [address] Care Team Providers Care Counsellors Name Role Phone Jimmie Lee MD Primary Care Provider [phone] Note from [facility],non-owned Affiliates and Associated Physician Practices is amultiple site organization consisting of ambulatory clinics and hospital sitesin [place], [place], [place] and [place]. This disclosure is being madepursuant to the Care Everywhere program and may not contain all information available regarding this patient. Last updated 18.[facility] Active Problems Problem Noted Date Diagnosed Date Abnormal genetic test in Social History Tobacco Use Types Packs/Day Years Used Date Smoking Tobacco: Never Assessed Sex and Gender Information Value Date Recorded Sex Assigned at Not on file Gender Identity Not on file Sexual Orientation Not on file Procedures * SONOGRAM - COMPLETE(Performed 12/05/2018) Performed for Abnormal genetic test in Results * SONOGRAM - COMPLETE (12/05/2018 1:18 PM CHRISTIAN EDUCATION DIRECTOR) Anatomical Region Laterality Modality Other 12/05/2018 1:18 PM CHRISTIAN EDUCATION DIRECTOR Narrative 12/05/2018 2:42 PM CHRISTIAN EDUCATION DIRECTOR [facility] PHONE: FAX: Pat. Name: KIANNA MARTINS Pat. No: [id number] Study Date: 12/05/2018 1:18pm , Age: 08 1990, 28 Pregnancies: 2, Para 1 Height: 63 in Weight: 197 lb LMP: Unknown GA by US: 15w0d LASHELL: 05/29/2019 GA Selected: 15w1d (Outside Scan) LASHELL: 05/28/2019 Referring MD: Álvaro Branch MD Audit Clerks Supervisor: Ericka Sánchez [facility] CPT4: 72340 BMI: 34.89 Hist/Ind: 1st trimester Sequential Screen: High risk for T18 NIPT: High risk for T21 Anatomic Survey MEASUREMENTS & AGE GROWTH EVALUATION Measurement GA Range Srce %for GA Ratios ----- ---- ------- BPD 2.8 cm 15w0d (34f4b-80s5x) Hadl BPD 36% FL/BPD 0.58 HC 10.8 cm 15w1d (12e9k-25p2l) Hadl HC 30% FL/AC 0.19 AC 8.5 cm 14w6d (58t9w-44d5s) Hadl AC 42% HC/AC 1.27 (1.10 - 1.29) FL 1.6 cm 14w6d (26l4n-80r8e) Hadl FL 32% CI 0.73 (0.70 - 0.86) GA for sonogram 15w0d (79s8r-93v3h) Weight Estimate: based on (BPD,HC,AC,FL) Avg Weight: 111 gm (95-127gm) Hadlock : 0lbs, 3oz Normal: 121 gm (91-151gm) Hadlock Wt% 27% for 15w1d Heart Rate: 142 bpm EVAL, PLACENTA Presentation: breech Placenta: posterior Heart Rate: 142 bpm Amniotic Fluid Volume: normal Anatomy!Normal!Abnormal!Suboptimal!Prev. Seen!Comments Cranium ! x ! ! ! ! Mdl (CSP/Thal! x ! ! ! ! Ventricles ! ! ! x ! ! Choroid Plexu! x ! ! ! ! Cerebellum ! ! ! x ! ! Cisterna M. ! ! ! x ! ! Nuchal Fold ! x ! ! ! ! Profile ! x ! ! ! ! Nasal Bone ! x ! ! ! ! Lip ! ! ! x ! ! Spine ! ! ! x ! ! Lungs ! ! ! x ! ! 4 Chamber Hea! ! ! x ! ! LVOT ! ! ! x ! ! 3 Vessel View! ! ! x ! ! Cross-over ! ! ! x ! ! Ductal Arch ! ! ! x ! ! Aortic Arch ! ! ! x ! ! Caval View ! ! ! x ! ! Situs ! ! ! x ! ! Diaphragm ! ! ! x ! ! Stomach ! x ! ! ! ! Bowel ! x ! ! ! ! Kidneys ! x ! ! ! ! Bladder ! ! ! x ! ! 3 Vessel Cord! ! ! x ! ! Cord In! ! ! x ! ! Upper Extremi! ! ! x ! ! Hands ! ! ! x ! ! Lower Extreme! ! ! x ! ! Feet ! ! ! x ! ! External Alicja! ! ! x ! ! CLINICAL SUMMARY Study Number: 1 A single fetus is identified breech presentation. The measurements today are consistent with appropriate size for the LASHELL provided. The LASHELL selected is based on a prior ultrasound examination. The amniotic fluid volume is normal. The placenta is posterior. No major malformations are seen. The patient was advised that ultrasound does not allow detection of all structural or chromosomal abnormalities. IMPRESSION: Single IUP at 15w1d Appropriate growth and normal amniotic fluid volume. No major malformations are seen today within the limitations of ultrasound. No aneuploidy markers seen today on early scan RECOMMEND: Patient was very upset during ultrasound and interview today related to results of screening tests as well as other life stressors I advised of screening nature of both sequential and NIPT and stressed that irreversible decisions should not be made based on the results as false positive tests do occur. She declined amniocentesis today but states she will consider doing it next week after she has had more time to deal with other stressors Thank you for allowing us the opportunity to care for your patient. Eli Whitten MD <Electronic Signature> 12/05/2018 02:41pm Ordering Provider Unlisted MD GUDELIA MOONA [facility] Care Teams Counsellors Relationship Specialty Start Date End Date Jimmie Lee MD [address] [place] [phone] PCP - General 07/06/22
--- OUTSIDE RECORDS SUMMARY | 2024-12-23 17:27 | XMS_ITS | Clinical Summary ---
Author Organization [facility] [employer] Address [address] [facility] [place] [address] Care Team Providers Care Wooden Tank Erector Name Role Phone Jimmie Lee MD Primary Care Provider [phone] Source Comments [facility],non-owned Affiliates and Associated Physician Practices is amultiple site organization consisting of ambulatory clinics and hospital sitesin [place], [place], [place] and [place]. This disclosure is being madepursuant to the Care Everywhere program and may not contain all information available regarding this patient. Last updated 18.[facility] [employer] Active Problems Patient Care Coordination No te [...] Orientation Not on file Plan of Treatment Health Maintenance Due Date Last Done Comments PAP SMEAR 1990 HIV SCREENING 2007 HEPATITIS C SCREENING 06/23/2010 DTAP/TDAP/TD VACCINES (1 - Tdap) 2011 HEPATITIS B VACCINE (1 of 3 - 19+ 3-dose series) 2011 COVID-19 VACCINE ( - 2023-2 5 season) 2024 INFLUENZA VACCINE (#1) 2024 07/25/2017 DEPRESSION SCREENING 11/04/2024 ZOSTER VACCINE (1 of 2) 2042 HIB VACCINE Aged Out No longer eligi ble based on patient's age to complete this topic HPV VACCINE Aged Out No longer eligi ble based on patient's age to complete this topic MENINGOCOCCAL (Group B) VACCINE Aged Out No longer eligible based on patient's age to complete this topic MENINGOCOCCAL VACCINE Aged Out No holly yonis eligible based on patient's age to complete this topic PNEUMOCOCCAL VACCINE Aged Out No long er eligible based on patient's age to complete this topic Care Teams Wooden Tank Erector Relationship Specialty Start Date End Date Jimmie Lee MD [address] [place] [address] PCP - General 07/06/22
--- OUTSIDE RECORDS SUMMARY | 2024-12-23 17:27 | XMS_ITS | Clinical Summary ---
Author Organization [facility] Medical Office Building [address] Address [address] [place] [address] Care Team Providers Care News Analyst Name Role Phone Jimmie Lee MD Primary Care Provider [phone] Allergies Active Allergy Reactions Criticality Noted Date Comments Aspirin Hives,Other (See comments) Medium 08/15/2020 Penicillins Other (See comments) Low 08/15/2020 makes me pee and poop blood Tolerated dose of ceftriaxone in 2019. MWatson PharmD Medications acetaminophen (TYLENOL) 500 mg tablet Take 1 tablet (500 mg total) by mouth every 6 (six) hours as needed for pain Active gabapentin (NEURONTIN) 300 mg capsule TAKE 1 CAPSULE BY MOUTH AT BEDTIME NEEDED 4 Active etonogestreL (Nexplanon) 68 mg implant Inject by subcutaneous route. Active buPROPion XL (WELLBUTRIN XL) 150 mg 24 hr tablet Take 1 tablet (150 mg total) by mouth nightly Active SUMAtriptan (IMITREX) 25 mg tabletIndicatio ns:Migraine Take 1 tablet (25 mg total) by mouth once as needed for migraine May repeat dose once in 2 hours if no relief. Do not exceed 2 doses in 24 hours. Active ascorbic acid (VITAMIN C) 500 mg tablet,chewable Take 1 tablet/chew tab (500 mg total) by mouth 2 (two) times a day 60 tablet/chew tab 4 Active cholecalciferol (VITAMIN D-3) 2000 unit capsule Take 1 capsule (2,000 Units total) by mouth daily 30 capsule 4 Active HYDROcodone-tricia taminophen (NORCO) 5-325 mg per tabletIndicatio ns:Pain Take 1 tablet by mouth every 6 (six) hours as needed for pain 10 tablet 4 Active ondansetron (ZOFRAN) 4 mg tabletIndicatio ns:Prevention of Post-Operative Nausea and Vomiting Take 1 tablet (4 mg total) by mouth every 6 (six) hours as needed for nausea or vomiting 15 tablet 1 4 Active Active Problems Problem Noted Date Diagnosed Date Carpal tunnel syndrome on right 03/02/2024 Pain in right hand 06/19/2023 Abnormal genetic test in 11/14/2020 Elevated LFTs 08/16/2020 Acute bronchitis 08/16/2020 Smoker 08/16/2020 Leukocytopenia 08/15/2020 Headache 08/15/2020 Seizure 08/15/2020 Encounters Date Type Department Care Team Description 11/10/[address] [facility] Medical Group Orthopedics and Sports Medicine [address] [facility] [address] [place] [id number] Yehuda Talbert MD from Last 3 Months Surgical History Surgery Date Site/Laterality Comments FL FLUORO GUIDED LUMBAR PUNCTURE 08/17/2020 Right CHOLECYSTECTOMY SECTION Medical History Medical History Date Comments Depression Post Migraine Anxiety Social History Tobacco Use Types Packs/Day Years Used Date Smoking Tobacco: Former Cigarettes Smokeless Tobacco: Never Tobacco Cessation:Counseling Given: Not Answered AUDIT-C Answer Date Recorded Frequency of Alcohol Consumption Not on file 03/02/2024 Q2: How many drinks containi ng alcohol do you have on a typical day when you are drinking? Patient does not drink Frequency of Binge Drinking Not on file 02/03 Personal Safety Answer Date Recorded Have you ever been in or are you currently in a harmful physical or emotional relationship or is someone making you feel afraid or unsafe? Denies 03/05/2024 Comments No Sex and Gender Information Value Date Recorded Sex Assigned at Not on file Legal Sex Female 2:38 PM FUR CLEANER Gender Identity Not on file Sexual Orientation Not on file Obstetrics History Last Filed Vital Signs Vital Sign Reading Time Taken Comments Blood Pressure 104/61 03/18/2024 10:10 AM CDT Pulse 74 03/18/2024 10:10 AM CDT Temperature 36.4 C (97.5 F) 03/05/2024 10:10 AM CDT Respiratory Rate 18 03/05/2024 10:10 AM CDT Oxygen Saturation 100% 03/05/2024 10:10 AM CDT Inhaled Oxygen Concentration - - Weight 91.2 kg (201 lb) 03/18/2024 10:10 AM CDT Height 157.5 cm (5' 2 ) 03/18/2024 10:10 AM CDT Body Mass Index 36.76 03/18/2024 10:10 AM CDT Plan of Treatment Health Maintenance Due Date Last Done Comments Cervical Cancer Screening 1992 Depression Screening 1992 Hepatitis C Screening 1992 Varicella Vaccines (1 of 2 - 13+ 2-dose series) 2005 Hepatitis B Screening 2010 Regular Well Visit/Exam 18-64 2010 Influenza Vaccine (#1) 2024 07/25/2017 DTaP/Tdap/Td Vaccine (2 - Td or Tdap) 09/01/2026 09/01/2016 HPV Vaccines Aged Out No longer eligi ble based on patient's age to complete this topic Pneumococcal vaccine <65 Aged Out No longer eligible based on patient's age to complete this topic Insurance [facility] Advance Directives For more information, please contact: [phone] * Full Code (Latest Code Status on File) Date Activated Date Inactivated Comments 08/15/2020 3:17 PM 08/18/2020 10:16 PM Care Teams News Analyst Relationship Specialty Start Date End Date Jimmie Lee MD PCP - General Internal Medicine 06/26/18
--- OUTSIDE RECORDS SUMMARY | 2024-12-23 17:27 | XMS_ITS | Referral Summary ---
Author Organization [facility] Medical Office Building [address] Address [address] [place] [address] Care Team Providers Care Grain Loader Name Role Phone Jimmie Lee MD Primary Care Provider [phone] Encounters Date Type Department Care Team Description 11/10/2024 Telephone [facility] Medical Group Orthopedics and Sports Medicine [address] [facility] [address] [place] [address] Yehuda Talbert MD from Last 3 Months Allergies Active Allergy Reactions Criticality Noted Date [...] 08/16/2020 Leukocytopenia 08/15/2020 Headache 08/15/2020 Seizure 08/15/2020 Social History Tobacco Use Types Packs/Day Years [...] on file Legal Sex Female 2:38 PM REGISTRY NP Gender Identity Not on file Sexual Orientation Not on file Last Filed Vital Signs Vital Sign Reading [...] 03/18/2024 10:10 AM CDT Plan of Treatment Not on file Insurance [facility] Advance Directives For more information, please contact: [phone] * Full Code (Latest Code Status on File) Date Activated Date Inactivated Comments 08/15/2020 3:17 PM 08/18/2020 10:16 PM Care Teams Grain Loader Relationship Specialty Start Date End Date Jimmie Lee MD PCP - General Internal Medicine 06/26/18
--- OUTSIDE RECORDS SUMMARY | 2024-12-23 17:27 | XMS_ITS | Clinical Summary ---
Author Organization [facility] Address [address] [place] [address] Phone Care Team Providers Care Bus Person Dishwasher Name Role Phone Stefan Lee MD Primary Care Provider [phone] Allergies Active Allergy Reactions Criticality Noted Date Comments Aspirin Hives 01/27/2017 Penicillins Other (see Comments) 07/20/2020 Diarrhea and bloody urine Medications HYDROcodone-tricia taminophen (NORCO) 5-325 MG Tablet Take 1 Tab by mouth every 4 hours as needed for Pain. 15 Tab 0 6 Active Additional Information Patient not taking.Reported on 07/25/2023 azithromycin (ZITHROMAX Z-ROBERTO) 250 MG Tablet 2 tab(s) daily for 1 day, then 1 tab(s) daily for days 2-5. 6 Tab 0 6 Active Additional Information Patient not taking.Reported on 07/25/2023 HYDROcodone-tricia taminophen (NORCO) 5-325 MG Tablet Take 1-2 Tabs by mouth every 4 hours as needed for Pain. 20 Tab 0 7 Active Additional Information Patient not taking.Reported on 07/25/2023 AMOXICILLIN PO Take by mouth. Active metroNIDAZOLE (FLAGYL) 500 MG Tablet Take 1 Tab by mouth 3 times daily. 30 Tab 0 7 Active Additional Information Patient not taking.Reported on 07/25/2023 Vit-Fe Fumarate-FA ( VITAMIN PO) Take by mouth. Act rekha buPROPion (WELLBUTRIN) 150 MG XL tablet Take 150 mg by mouth every morning. Active gabapentin (NEURONTIN) 300 MG Capsule Take 300 mg by mouth 2 times daily. Active Loratadine 10 MG Capsule Take by mouth. Acti ve naproxen (NAPROSYN) 375 MG Tablet Take 375 mg by mouth 2 times daily (with meals). Active SUMAtriptan (IMITREX) 25 MG Tablet Take 25 mg by mouth once as needed. Use as directed. May repeat dose in 2 hours if headache recurs. Active traZODone (DESYREL) 50 MG Tablet Take 50 mg by mouth nightly. Active diclofenac (VOLTAREN) 50 MG Tablet Delayed Response Take 1 Tablet by mouth 2 times daily. 30 Tablet Active Immunizations Immunization Administration Dates Next Due TDAP Vaccine 09/01/2016 Family History Medical History Relation Name Comments Diabetes Father Hypertension Father Diabetes Mother Hypertension Mother Other-comment Mother malignant tumo r of cervix Other-comment Sister Relation Name Status Comments Father Mother Sister Social History Tobacco Use Types Packs/Day Years Used Date Smoking Tobacco: Every Day Cigarettes 0.5 10 Smokeless Tobacco: Never Tobacco Cessation:Ready to Q uit: Not Asked; Counseling Given: Not Answered Alcohol Use Standard Drinks/Week Comments No 0 (1 standard drink = 0.6 oz pur e alcohol) Comments No Sex and Gender Information Value Date Recorded Sex Assigned at Not on file Legal Sex Female 9:38 PM CDT Gender Identity Not on file Sexual Orientation Not on file Last Filed Vital Signs Vital Sign Reading Time Taken Comments Blood Pressure 125/77 01/27/2024 9:36 PM CDT Pulse 74 01/27/2024 9:36 PM CDT Temperature 37.4 C (99.3 F) 01/27/2024 8:23 PM CDT Respiratory Rate 19 01/27/2024 9:36 PM CDT Oxygen Saturation 100% 01/27/2024 9:36 PM CDT Inhaled Oxygen Concentration - - Weight 84.8 kg (187 lb) 01/27/2024 8:23 PM CDT Height 157.5 cm (5' 2 ) 01/27/2024 8:23 PM CDT Body Mass Index 34.2 01/27/2024 8:23 PM CDT Plan of Treatment Health Maintenance Due Date Last Done Comments Hepatitis C Virus (HCV) Screening 1992 Hepatitis B Immunization (1 of 3 - 19+ 3-dose series) 2011 Pneumococcal Immunization Combined (1 of 2 - PCV) 2011 Pap Smear 2013 Cervical Cancer Screening (CCS) 2022 HPV/Cotest 2022 Influenza Immunization (#1) 2024 07/25/2017 SARS-COV-2 Immunization ( - season) 2024 Td Immunization Every 10 Years (Adults With 1 Tdap) 04/18/2030 04/18/2020, 09/01/2016 Respiratory Syncytial Virus (RSV) Immunization (Adult) (1 - 1-dose 75+ series) 2067 DTaP/Tdap/Td Immunization Discontinued 2019, 09/01/2016 Meningococcal Immunization (ACWY) Aged Out No longer eligible based on patient's age to complete this topic Rotavirus Immunization Aged Out No lo nger eligible based on patient's age to complete this topic Insurance MEDICAID [employer] [facility] GENERIC MEDICAID [employer] [place] Care Teams Bus Person Dishwasher Relationship Specialty Start Date End Date Stefan Lee MD [address] [place] [address] PCP - General Internal Medicine 01/27/17
--- OUTSIDE RECORDS SUMMARY | 2024-12-23 17:27 | XMS_ITS | Clinical Summary ---
Author Organization [facility] Address [address] [place] [id number] Phone Care Team Providers Care Manual Qa Tester Name Role Phone Marlena Buckner MD Primary Care Provider [phone] Allergies Active Allergy Reactions Criticality Noted Date Comments Zodeac-100 Nausea and Vomiting,Dizziness,Headache Low 06/04/2010 Medications methocarbamol (ROBAXIN) 750 mg Oral tablet Take 1 Tab by mouth 3 times daily. 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 Gender Identity Not on file Sexual Orientation Not on file Last Filed Vital Signs Vital Sign Reading Time Taken Comments Blood Pressure 111/66 06/04/2010 4:44 PM CDT Pulse 97 06/04/2010 4:44 PM CDT Temperature 37.6 C (99.7 F) 06/04/2010 4:44 PM CDT Respiratory Rate 18 06/04/2010 4:44 PM CDT Oxygen Saturation 100% 06/04/2010 4:44 PM CDT Inhaled Oxygen Concentration - - Weight 68.9 kg (152 lb) 06/04/2010 4:44 PM CDT Height 162.6 cm (5' 4 ) 06/04/2010 4:44 PM CDT Body Mass Index 26.09 06/04/2010 4:44 PM CDT Plan of Treatment Health Maintenance Due Date Last Done Comments DTAP/TDAP/TD VACCINES (1 - Tdap) 2011 HEPATITIS B VACCINES (1 of 3 - 19+ 3-dose series) 2011 CERVICAL CANCER SCREENING 2022 INFLUENZA VACCINE (#1) 2024 HPV VACCINES Aged Out No longer eligi ble based on patient's age to complete this topic PNEUMOCOCCAL VACCINE 0-64 YEARS Aged Out No longer eligible based on patient's age to complete this topic Care Teams Manual Qa Tester Relationship Specialty Start Date End Date Marlena Buckner MD PCP - General Pediatrics 06/04/10
--- OUTSIDE RECORDS SUMMARY | 2024-12-23 17:27 | XMS_ITS | Data Portability ---
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 Patient will come back in a year unless there are new symptoms. [email or web address] Not available 01/05/2022 16:06:52 Plan of Treatment Reminders Order Date Submit Date Provider Last Modified By Organization Details Last Modified Time Details Appointments None recorded. Lab dhea-sulfat e, serum 2021 022 [facility] (Lab), [address], [place], [address], 2 14:33:03 hormone panel, serum or plasma 2021 022 [facility] (Lab), [address], [place], [address], 2 14:33:04 progesteron e, serum 2021 022 [facility] (Lab), [address] [place], [address], 2 14:33:03 prolactin, serum 2021 022 [facility] (Lab), [address] [place], [address], 2 14:33:03 shbg (sex hormone-bin ding globulin), serum 2021 [facility] (Lab), [address], [place], [address], 2 14:33:05 TSH, serum or plasma 2021 [facility] (Lab), [address], [place], [address], 2 14:33:04 testosteron e free/testos terone total, ratio, serum 2021 [facility] (Lab), [address], [place], [address], 2 14:33:05 Referral None recorded. Procedures None recorded. Surgeries None recorded. Imaging None recorded. Medication Orders Diflucan 150 mg tablet 2021 022 [facility], [address] [place], [address], 16:13:54 Lexapro 20 mg tablet 2020 021 [facility], [address] [place], [address], 12:58:17 Patient TargetsNo targets recorded. Patient InstructionsNo instructions recorded. Reason for Referral None Reported. Results Created Date Observation Date Name Description Value Unit Range Abnormal Flag Note LastModifiedBy Organization Detail LastModifiedTime 12/01/1912/01/2020 robert QUARLES follo w-up md interpretati on Not Available [facility] jayleen [address], [place], [address], 03/03/2020 16:46:11 12/14/19 21 12/14/2020 robert QUARLES follo w-up md interpretati on Not Available [facility] [address], [place], [address], 03/31/2020 15:08:36 12/13/19 22 12/13/2021 PROGE STERO NE progesterone 0.19 NG/mL This assay was perfo rmed using [employer] ratio n reage nts and test kits. Value s obtai abhijit with other assay metho ds or kits canno t be used inter [facility] . Femal e Proge stero ne Range s: Folli cular phase 0.06- 0.89 ng/mL Ovula tion phase 0.12- 12.00 ng/mL Lutea l phase 1.83- 23.90 ng/mL Postm enopa usal< 0.05- 0.13 ng/mL Healt hy Pregn ant Women 1st Trime ster1 1.0-4 4.30 2nd Trime ster2 5.40- 83.30 3rd Trime ster5 8.70- 214.0 0 Not Available [facility] (Lab) [address], [place], [address], 12/17/2021 14:33:03 12/13/19 22 12/13/2021 PROLA CTIN prolactin, total 10.30 NG/mL 4.79-2 3.30 This assay was perfo rmed using [employer] ratio n reage nts and test kits. Value s obtai abhijit with other assay metho ds or kits canno t be used inter [facility] . Not Available [facility] (Lab) [address], [place], [address], 12/17/2021 14:33:03 12/13/19 22 12/13/2021 FSH, LH, ESTRA DIOL estradiol 26.5 pg/mL This assay was perfo rmed using [employer] ratio n reage nts and test kits. Value s obtai abhijit with other assay metho ds or kits canno t be used inter [facility] . Femal e Estra diol Range s: Folli cular phase 12.4- 233 pg/mL Ovula tion phase 41.0- 398 pg/mL Lutea l phase 22.3- 341 pg/mL Postm enopa usal< 5-138 pg/mL Healt hy Pregn ant Women 1st Trime ster1 54-32 43 pg/mL 2nd Trime ster1 561-2 1280 pg/mL 3rd Trime ster8 525-> 29902 pg/mL Not Available [facility] (Lab) [address] [facility] [address] [facility], [place], [address], 12/17/2021 14:33:04 12/13/19 22 12/13/2021 FSH, LH, ESTRA DIOL FSH 9.1 mIU/m L This assay was perfo rmed using [employer] n reage nts and test kits. Value s obtai abhijit with other assay metho ds or kits canno t be used [facility] . Femal es Folli cular : 3.5-1 2.5 mIU/m L Ovula tion: 4.7-2 1.5 mIU/m L Lutea l: 1.7-7 .7 mIU/m L Postm enopa use: 25.8- 134.8 mIU/m L Not Available [facility] (Lab) [address], [place], [address], 12/17/2021 14:33:04 12/13/19 22 12/13/2021 FSH, LH, ESTRA DIOL LH 3.8 mIU/m L This assay was perfo rmed using [employer] ratio n reage nts and test kits. Value s obtai abhijit with other assay metho ds or kits canno t be used inter [facility] . Femal es Mid-F ollic ular: 2.4-1 2.6 mIU/m L Mid-C ycle: 14.0- 95.6 mIU/m L Mid-L uteal : 1.0-1 1.4 mIU/m L Postm enopa use: 7.7-5 8.5 mIU/m L Not Available [facility] (Lab) [address] [place], [address], 12/17/2021 14:33:04 12/13/19 22 12/13/2021 TSH, REFLE X FREE T4 TSH 0.97 uIU/m L 0.30-5 .33 Not Available [facility] (Lab) [address], [place], [address], 12/17/2021 14:33:04 12/13/19 22 12/13/2021 HUMAN SEX HORMO NE ELENO NG GLOBU JANELLE sex hormone binding globulin 33.6 nmole s/L 18.2-1 35.5 Not Available [facility] (Lab) [address], [place], [address], 12/17/2021 14:33:04 12/13/19 22 12/13/2021 TESTO STERO NE, FREE( DIALY SIS) AND TOTAL (LC/M S/MS) testosterone , total 15 NG/dL 2-45 For addit ional dannr ed boyd e refer to http: //[facility] pagan.lillian stdia gnost ics.c om/fa q/Tot alTchristiane Galicia [facility] (This link is being provi ded for infor edgardo meadows/ educa sailaja l purpo ses only. ) This test was devel oped and its shannon tical perfo rmanc e laurel cteri stics have been deter mined by [facility] [employer] [facility] [facility]. It has not been clear ed or appro arik by the FDA. This assay has been valid ated pursu ant to the CLIA regul ation s and is used for clini rafaela purpo ses. Not Available [facility] (Lab) [address], [place], [address], 12/17/2021 14:33:05 12/13/19 22 12/13/2021 TESTO STERO NE, FREE( DIALY SIS) AND TOTAL (LC/M S/MS) testosterone , free 2.5 pg/mL 0.1-6. 4 This test was devel oped and its shannon tical perfo rmanc e laurel cteri stics have been deter mined by [employer]. It has not been clear ed or appro arik by the FDA. This assay has been valid ated pursu ant to the CLIA regul ation s and is used for clini rafaela purpo ses. Perfo rming Organ izati on Infor matio n: Site ID: [id number] Name: [facility]-Edilberto kelsey Myers cia Addre ss: [id number] [place] [address] Direc tor: Doe braun M.D. Not Available [facility] (Lab) [address], [place], [address], 12/17/2021 14:33:05 12/20/19 22 12/20/2021 pregn silvana test, urine HCG negati ve Not Available [facility] [address], [place], [address], 12/20/2021 18:10:22 Result Notes None recorded. Problems Name Problem SNOMED Code Status Onset Date Resolution Date Notes Provider Name and Address Organization Details Recorded Time Genital herpes simplex 41674650 Completed HSV Eliseo Soria [facility] 1 16:48:08 Pregnanc y detectio n examinat ion Completed 201802/28/2021 Encounte r for pregnanc y test, result positive ;Recorde d Elsewher e: No Locat ion: [facility] S ource: EHR Police Surgeon edilberto: N Practi ce ID: [id number] Jun lable Time: 01:00:00 PM Lurdes Jenkins [facility] 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 1 12:43:12 Antenata l screenin g Completed 201702/28/2021 Encounte r for antenata l screenin g for uncertai n dates;Re corded Elsewher e: No [facility]: EHR Police Surgeon edilberto: N Nicholasti ce ID: [id number] Jun lable Time: 02:00:00 PM Lurdes Jenkins chloe, [facility] 12:42:20 Depressi ve disorder [id number] Completed 201802/28/2021 Depressi on;Recor ded Elsewher e: No [facility]: EHR Police Surgeon edilberto: N Practi ce ID: 0001 Jun lable Time: 02:30:00 PM Lurdes Jenkins [facility], [facility] 12:42:26 Gestatio n period, 9 weeks [id number] Completed 201802/28/2021 9 weeks gestatio n of pregnanc y;Record ed Elsewher e: No [facility] our[facility]: EHR Police Surgeon edilberto: N Practi ce ID: [id number] Jun lable Time: 01:45:00 PM Lurdes Jenkins [facility] 12:43:03 Pelvic and perineal pain [id number] Completed 201802/28/2021 Pelvic and perineal pain;Rec orded Elsewher e: No Locat ion: [facility] S ource: EHR Police Surgeon edilberto: N Practi ce ID: [id number] Jun lable Time: 09:45:00 AM Lurdes Jenkins chloe [facility] 12:43:07 Endometr iosis of thorax [id number] Completed 201802/28/2021 Other endometr iosis;Re corded Elsewher e: No Locat ion: [facility] S ource: EHR Police Surgeon edilberto: N Practi ce ID: 0001 Jun lable Time: 09:00:00 AM Lurdes corona [facility] 12:42:59 Rubella screenin g status [id number] Completed 201802/28/2021 Encounte r for antenata l screenin g, unspecif ied;Yariel rded Elsewher e: No [facility]: EHR Police Surgeon edilberto: N Cat ce ID: [id number] Jun lable Time: 05:30:00 PM Lurdes corona, [facility] 12:43:10 Antenata l screenin g for malforma tion Completed 201902/28/2021 Encounte r for antenata l screenin g for malforma tions;Re corded Elsewher e: No Locat ion: [facility] S ource: EHR Police Surgeon edilberto: Ej Shelton ce ID: 0001 Jun lable Time: 04:00:00 PM Lurdes corona, [facility] 12:42:22 Normal pregnanc y in multigra juan luis [id number] Completed 201802/28/2021 Encounte r for supervis ion of other normal pregnanc y, 1st trimeste r;Record ed Elsewher e: No Locat ion: [facility] S ource: EHR Police Surgeon edilberto: Ej Shelton ce ID: 0001 Jun lable Time: 05:30:00 PM Lurdes corona [facility] 12:43:05 Urinary tract infectio us disease [id number] Completed 201802/28/2021 Urinary tract infectio n, site not specifie d;Record ed Elsewher e: No Locat ion: [facility] S ource: EHR Police Surgeon edilberto: N Nicholasti ce ID: 0001 Jun lable Time: 09:00:00 AM Lurdes corona [facility] 12:43:15 Gestatio n less than 9 weeks [id number] Completed 201802/28/2021 Less than 8 weeks gestatio n of pregnanc y;Record ed Elsewher e: No Locat ion: Kyle nagy [facility] S ource: EHR Police Surgeon edilberto: N Nicholasti ce ID: 0001 Jun radha Time: 01:00:00 PM Lurdes Jenkins [facility], [facility] 1 12:43:01 Deliveri es by [id number] Completed 201902/28/2021 *WANTS RPT C/S!* Task sent to 03/11/2020 . [email or web address] [facility], [facility] 1 12:42:24 delivery - delivere d [id number] Completed To repeat - 04/18/20 Eliseo Soria [facility] 1 16:48:08 Problem Notes None recorded. Procedures Surgical History Date Name Laterality Status Provider Name and Address Organization Details Recorded Time 2 Control Implant Insertion completed Álvaro Branch MD [address], [place], [address], [facility] 12/20/2021 18:24:03 0 section [facility] 04/26/2020 09:04:49 9 Date of Last Pap Smear completed Cynthia Best [facility] 12/13/2021 12:56:42 8 Oral surgery procedure completed Nkechi Neumann [facility] 03/11/2020 14:58:02 2 section completed Lurdes eJnkins [facility] 03/11/2020 17:34:10 Imaging Results None recorded. Procedure Notes None recorded. Medical Equipment None Reported. Allergies Allergen ID Allergen Name Allergen Category Reaction Reaction Severity Criticality Documentation Date Start Date Code Code System Note Provider Name and Address Organization Details Recorded Time 517 Product containin g penicilli n (product) medicatio n Not available Not available Not available 03/11/2020 60198 8001 SNOMED Lurdes Jenkins chloe, [facility] 0 15:27:00 518 aspirin medicatio n Not available Not available Not available 03/11/2020 1191 RxNorm Lurdes Jenkins [facility], [facility] 0 15:27:14 Medications Name Sig Start Date Stop Date Status Note LastModified by Organization Details LastModified Time naproxen 375 mg tablet TAKE 1 TABLET BY MOUTH ONCE DAILY WITH A MEAL active Not Available Not Available No t Available clindamyc in HCl 300 mg capsule take 2 capsule by oral route every 6 hours 12/25 completed Prescrib ed Elsewher e: No Locat ion: [facility] M odify By: rey kendrick DateTime : 12/25/19 09:45:00 AM Not Available Not Available Not Available trazodone 50 mg tablet TAKE 1/2 (ONE-RADHA F) TABLET BY MOUTH AT BEDTIME FOR 3 DAYS THEN TAKE 1 TABLET BY MOUTH AT BEDTIME THEREAFT ER active Not Available Not Available No t Available fluconazo le 150 mg tablet TAKE 1 TABLET BY MOUTH EVERY OTHER DAY FOR 3 DOSES active Not Available Not Available No t Available sumatript an 100 mg tablet TAKE ONE TABLET BY MOUTH AT ONSET OF MIGRAINE . IF SYMPTOMS PERSIST A SECOND DOSE MAY BE TAKEN IN 2 HOURS. DO NOT EXCEED 2 DOSES IN A 24 HOUR PERIOD UNLESS OTHERWIS E INSTRUCT ED BY YOUR PHYSICIA N 01/05 completed Not Available Not Available Not Available promethaz ine 12.5 mg tablet TAKE 1 TABLET BY MOUTH THREE TIMES DAILY NEEDED 02/28 completed Not Available Not Available Not Available sumatript an 25 mg tablet TAKE ONE TABLET BY MOUTH AT ONSET OF MIGRAINE . IF SYMPTOMS PERSIST, A SECOND DOSE MAY BE TAKEN IN 2 HOURS. DO NOT EXCEED 3 TABS IN A 24 HOUR PERIOD, UNLESS OTHERWIS E INSTRUCT ED BY YOUR PHYSICIA N active Not Available Not Available No t Available ondansetr on HCl 4 mg tablet TAKE 1 TABLET BY MOUTH EVERY 8 HOURS NEEDED FOR NAUSEA FOR VOMITING 01/05 completed Not Available Not Available Not Available rizatript an 10 mg tablet TAKE ONE TABLET BY MOUTH AT ONSET OF MIGRAINE . IF SYMPTOMS PERSIST, A SECOND DOSE MAY BE TAKEN IN 2 HOURS. DO NOT EXCEED 2 DOSES IN A 24 HOUR PERIOD, UNLESS OTHERWIS E INSTRUCT ED BY YOUR PHYSICIA N active Not Available Not Available No t Available methyldop a 250 mg tablet 02/28 completed Not Available Not Available Not Available ciproflox acin 250 mg tablet TAKE 1 TABLET BY MOUTH EVERY 12 HOURS FOR 7 DAYS active Not Available Not Available No t Available valacyclo vir 500 mg tablet TAKE 1 TABLET BY MOUTH ONCE DAILY active Not Available Not Available No t Available sulfameth oxazole 800 mg-trimet hoprim 160 mg tablet 03/11 completed Not Available Not Available Not Available triamcino lone acetonide 0.1 % topical cream 04/25 completed Not Available Not Available Not Available amitripty line 25 mg tablet TAKE 1 TAB BY MOUTH AT BEDTIME FOR 7 DAYS THEN TAKE 2 TABS AT BEDTIME THEREAFT ER 01/05 completed Not Available Not Available Not Available topiramat e 25 mg sprinkle capsule TAKE 1 CAPSULE BY MOUTH TWICE DAILY FOR 7 DAYS THEN TAKE 2 CAPSULES BY MOUTH TWICE DAILY THEREAFT ER active Not Available Not Available No t Available amitripty line 10 mg tablet 01/05 completed Not Available Not Available Not Available baclofen 10 mg tablet TAKE 1 TABLET BY MOUTH TWICE DAILY 01/05 completed Not Available Not Available Not Available doxycycli ne monohydra te 100 mg capsule 03/11 completed Not Available Not Available Not Available cephalexi n 500 mg capsule 03/11 completed Not Available Not Available Not Available gabapenti n 300 mg capsule TAKE 1 CAPSULE BY MOUTH ONCE DAILY AT BEDTIME active Not Available Not Available No t Available mupirocin 2 % topical ointment 03/11 completed Not Available Not Available Not Available ibuprofen 600 mg tablet TAKE 1 TABLET BY MOUTH THREE TIMES DAILY NEEDED FOR FEVER OR PAIN 02/28 completed Not Available Not Available Not Available methylpre dnisolone 4 mg tablets in a dose pack 04/25 completed Not Available Not Available Not Available albuterol sulfate HFA 90 mcg/actua tion aerosol inhaler active Not Available Not Available Not Available [place] 5 mg-325 mg tablet i po Q4 hours prn pain 02/28 completed Not Available Not Available Not Available escitalop fortino 20 mg tablet TAKE 1 TABLET BY MOUTH ONCE DAILY active Not Available Not Available No t Available bupropion HCl XL 150 mg 24 hr tablet, extended release TAKE 1 TABLET BY MOUTH ONCE DAILY active Not Available Not Available No t Available Nexplanon 68 mg subdermal implant Inject by subcutan eous route. active Not Available Not Available No t Available 28 mg-800 mcg tablet 01/05 completed Prescrib juan luis Shabazz e: Yes [facility] By: [email or web address] z Encoun ter DateTime : 10/17/20 18 01:00:00 PM Not Available Not Available Not Available Slynd 4 mg (28) tablet Take 1 tablet every day by oral route. 02/28 completed Not Available Not Available Not Available ID NOW COVID-19 Test Kit TEST DIRECTED TODAY active Not Available Not Available No t Available Vitals Date Recorded Body height Body mass index (BMI) Body weight Systolic blood pressure Diastolic blood pressure Provider Name and Address Organization Details Last Updated DateTime 02/28/2021 158.11 cm 34.1 kg/m2 89036.37 g 116 mm[Hg] 79 mm[Hg] Lurdes Jenkins [facility] 1 12:40:35 Date Recorded Body height Body mass index (BMI) Body weight Systolic blood pressure Diastolic blood pressure Provider Name and Address Organization Details Last Updated DateTime 12/13/2021 158.11 cm 33.4 kg/m2 06885 g 118 mm[Hg] 77 mm[Hg] [facility] 2 12:46:01 Date Recorded Body height Body mass index (BMI) Body weight Systolic blood pressure Diastolic blood pressure Provider Name and Address Organization Details Last Updated DateTime 12/20/2021 158.11 cm 33 kg/m2 13315.81 g 114 mm[Hg] 76 mm[Hg] [facility] 2 17:56:47 Date Recorded Body height Body mass index (BMI) Body weight Provider Name and Address Organization Details Last Updated DateTime 01/05/2022 157.48 cm 32.7 kg/m2 96776.03 g Mamie Purvis [facility] 01/05/2022 16:07:23 Date Recorded Systolic blood pressure Diastolic blood pressure Provider Name and Address Organization Details Last Updated DateTime 01/05/2022 120 mm[Hg] 80 mm[Hg] Michelle Espinoza, [facility]- [address], [place], [address], [facility] 01/05/2022 16:20:50 Date Recorded Body height Body mass index (BMI) Systolic blood pressure Diastolic blood pressure Provider Name and Address Organization Details Last Updated DateTime 05/20/2020 158.11 cm 37 kg/m2 136 mm[Hg] 92 mm[Hg] Michelle Jenkins [facility] 05/20/2020 10:03:49 Date Recorded Body weight Provider Name an d Address Organization Details Last Updated DateTime 05/20/2020 [id number] luz Soria [facility] 11/18/2020 16:48:09 Social History Question Answer Notes LastModified by Organizat ion Details LastModified Time Tobacco Smoking Status Current Every Day Smoker Lurdes Jenkins [facility], [facility] 03/11/2020 17:35:53 If You Are , What Was Your Level Of Alcohol Consumption Prior To ? Occasional [email or web address] Information not available 03/11/2020 Are You Blind Or Do You Have Difficulty Seeing? No [email or web address] Information not available 02/28/2021 What Is Your Level Of Caffeine Consumption? Occasional [email or web address] Information not available 02/28/2021 In The 14 Days Before Symptom Onset, Have You Had Close Contact With A Laboratory-confir med COVID-19 While That Case Was Ill? No [email or web address] Information not available 02/28/2021 In The 14 Days Before Symptom Onset, Have You Had Close Contact With A Person Who Is Under Investigation For COVID-19 While That Person Was Ill? No [email or web address] Information not available 02/28/2021 Have You Been To An Area Known To Be High Risk For COVID-19? No [email or web address] Information not available 02/28/2021 Are You Deaf Or Do You Have Serious Difficulty Hearing? No [email or web address] Information not available 02/28/2021 What Type Of Diet Are You Following? REGULAR [email or web address] Information not available 02/28/2021 Which Illicit Or Recreational Drugs Have You Used? Marijuana [email or web address] Information not available 03/11/2020 Illicit Drugs Pre- Yes [email or web address] Information not available 03/11/2020 What Was The Date Of Your Most Recent Tobacco Screening? 02/28/2021 [email or web address] Information not available 02/28/2021 Do You Use Your Seat Belt Or Car Seat Routinely? Yes [email or web address] Information not available 02/28/2021 Do You Have Smoke And Carbon Monoxide Detectors In Your Home? Yes [email or web address] Information not available 02/28/2021 How Much Tobacco Do You Smoke? 0.5 PPD [email or web address] Information not available 03/11/2020 Smoking Pre- Yes [email or web address] Information not available 03/11/2020 Do You Feel Stressed (tense, Restless, Nervous, Or Anxious, Or Unable To Sleep At Night)? [id number] [email or web address] Information not available 02/28/2021 Do You Use Sunscreen Routinely? Yes [email or web address] Information not available 02/28/2021 Sex: Unknown Functional Status Question Answer Note LastModified by Organization D etails LastModified Time Are you able to walk? YESWOREST [email or web address] Information not available 02/28/2021 What is your exercise level? Moderate [email or web address] Information not available 02/28/2021 Mental Status None recorded. Family History Relationship Description Onset Age of this Age Resolved Age Notes LastModified by Organization Details LastModified Time Father Diabetes mellitus Not available 03/11 17:11:26 Father Hypercholest erolemia [email or web address] Not available 03/11 17:11:40 Father Liver cell carcinoma [email or web address] Not available 03/11 17:13:25 Maternal Aunt Diabetes mellitus [email or web address] Not available 03/11 17:11:27 Maternal Aunt Disorder of thyroid gland [email or web address] Not available 03/11 17:12:59 Maternal Aunt Malignant tumor of ovary [email or web address] Not available 03/11 17:26:54 Maternal Aunt Cyst of ovary [email or web address] Not available 03/11 17:28:52 Maternal Uncle Hypercholest erolemia [email or web address] Not available 03/11 17:11:53 Maternal Uncle Malignant tumor of lung [email or web address] Not available 03/11 17:31:57 Maternal Uncle Blood coagulation disorder [email or web address] Not available 03/11 17:33:06 Paternal Aunt Hypercholest erolemia [email or web address] Not available 03/11 17:12:00 Paternal Grandfather Hypercholest erolemia [email or web address] Not available 03/11 17:12:10 Paternal Grandfather Heart disease [email or web address] Not available 03/11 17:31:29 Paternal Grandfather Blood coagulation disorder [email or web address] Not available 03/11 17:33:06 Maternal Grandmother Hypercholest erolemia Not available 03/11 17:12:17 Maternal Grandmother Disorder of thyroid gland [email or web address] Not available 03/11 17:27:40 Maternal Grandmother Cyst of ovary [email or web address] Not available 03/11 17:28:52 Maternal Grandmother Malignant tumor of cervix [id number] Not available 03/11 17:31:42 Sister Malignant tumor of ovary [id number] Not available 03/11 17:26:54 Sister Cyst of ovary [email or web address] Not available 03/11 17:28:52 Sister Malignant tumor of cervix [email or web address] Not available 03/11 17:29:17 Sister Disorder of thyroid gland Not available 03/11 17:33:26 Mother Cyst of ovary [email or web address] Not available 03/11 17:28:52 Mother Malignant tumor of cervix [email or web address] Not available 03/11 17:29:17 Mother Malignant tumor of lung [id number] Not available 03/11 17:29:34 Mother Disorder of thyroid gland [id number] Not available 03/11 17:30:10 Mother Family history of chronic obstructive lung disease [email or web address] Not available 17:30:41 Paternal Grandmother Malignant tumor of colon [email or web address] Not available 03/11 17:32:13 Paternal Grandmother Hypercholest erolemia [id number] Not available 03/11 17:32:30 Medical History Condition Response Anxiety Disorder Y History of STI Y Endometriosis Y Headaches Y Depression/ depression Y Gynecological History Statement/Question Response Flow Moderate Date of LMP 12/07/2021 STIs/STDs Y HPV Vaccine N Current Control Method Implant Sexually Active? Y Menses Monthly Y Date of Last Pap Smear 09/09/2019 Sexual Problems? N Desired Control Method Implant LMP Approximate Obstetrics History GPAL:G 3 P 2 0 1 2 Type Value Full Term 2 Spontaneous 1 Living 2 Total 3 Past Encounters Encounter ID Performer Location Encounter Start Date Encounter Closed Date Diagnosis/Indication Diagnosis SNOMED-CT Code Diagnosis ICD10 Code Diagnosis Note [id number] Lucero Baker [facility] [address],[place] [address] 03/03/2020 16:09:50 03/03/2020 17:07:45 Uterine size for dates discrepancy 910218106 O26.849 Z3A.32 [id number] [facility] [address],[place] [address] 03/11/2020 14:47:41 03/11/2020 15:46:11 Routine care 922596139 Z34.93 [id number] Sammi Purvis [facility] [address],[place] [address] 03/31/2020 14:31:45 03/31/2020 16:31:50 Uterine size for dates discrepancy 058730983 O26.849 Z3A.32 Z3A.36 [id number] Álvaro Branch MD [facility] [address] [place] [address] 03/31/2020 14:32:05 03/31/2020 16:24:24 Routine care 247135083 Z34.83 [id number] S Akhil [facility] [address],[place] [address] 04/12/2020 11:07:06 04/12/2020 16:59:29 Normal 23611129 Z34.93 [id number] S Akhil [facility] [address],[place] [address] 04/25/2020 11:22:54 04/25/2020 11:57:40 section following previous section [id number] O34.219 Doing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
[2024-12-23 17:29] VITALS: BP 141/75; PULSE 85; RESP 20; TEMP 36.4; O2SAT 100
--- NOTE | 2024-12-23 17:37 | ED.UPPEXIN ---
HPI - Extremity Injury (Upper) General Chief Complaint: Extremity Injury, Upper Stated Complaint: right hand / fingers swollen Time Seen by Provider: 12/23/24 17:40 Source: patient and RN notes reviewed Mode of arrival: ambulatory Limitations: no limitations History of Present Illness HPI narrative: 34-year-old female presents with concern for pain and swelling of the 2nd digit of the right hand. Reports she noticed it 2 nights ago, she does not remember falling out of bed but her camera in her room shows her falling out of bed. She reports mid digit pain and swelling. Denies decreased strength, sensation. Reports difficulty with flexion due to swelling and pain MD complaint: injury to: right and finger Related Data Home Medications ?Medication ?Instructions ?Recorded ?Confirmed ?Last Taken ?Type No Home Medications 12/23/24 12/23/24 Unknown History Allergies Allergy/AdvReac Type Severity Reaction Status Date / Time aspirin Allergy Unknown Hives / Verified 12/23/24 17:27 Red Face Penicillins Allergy Unknown Other Verified 12/23/24 17:27 Review of Systems Review of Systems: CONSTITUTIONAL: Denies malaise, chills, sweats, or fever. SKIN: Denies rash or itching, open skin, laceration, abrasion, redness, warmth MUSCULOSKELETAL: Reports pain and swelling in the 2nd digit of the right hand NEUROLOGIC: Denies numbness, weakness All systems reviewed & are unremarkable except as noted in HPI and below PMFSH Past Medical History Medical History Anxiety Depression Hx of migraines Marijuana use Surgical History Surgical History History of 2011 and 2019 Hx laparoscopic cholecystectomy 07/13/22 Family History Family History Mother Cervical cancer Diabetes mellitus Hypothyroidism Lung cancer Kidney carcinoma Hypertension Sibling Cervical cancer Hypothyroidism IBS (irritable bowel syndrome) Father History of blood clots Liver cancer Thyroid ca Diabetes mellitus Bone cancer Acute myocardial infarction Kidney failure Due to his cancer Hypertension Social History Social History Social History: daily caffeine use- 64 oz of soda Smoking packs per day: 0.5 Smoking cigarettes per day: 10.0 Years smoked: 16 Smoking pack-years: 8.00 Smoking status: Current every day smoker Tobacco type: cigarettes Second hand tobacco smoke exposure: Yes Alcohol intake: never Substance use: current Substance use type: marijuana Living arrangements: with family Additional living arrangements comments: SON 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 There is no relevant family history pertinent to the presenting complaint Exam Narrative: GENERAL: Well-appearing, well-nourished, and in no acute distress. HEAD: Normocephalic EYES: PERRLA, conjunctivae clear NECK: Supple. CHEST: Speaks in full sentences. No respiratory distress. HEART: Regular rate and rhythm. Normal and equal peripheral pulses. EXTREMITIES: 2nd digit of right hand has grossly normal strength and sensation. 5/5 strength with digit flexion, extension. Range of motion limited likely due to pain and swelling with flexion. No clubbing, cyanosis, or edema noted. Mid digit tenderness. Skin intact. Normal digital cascade with flexion of fingers, median, ulnar and radial nerve intact. Normal sensation of each side of finger. Good capillary refill and radial pulse. Distal capillary refill less than 3 seconds. SKIN: Warn, dry, intact, pink. No rash NEURO: Alert and oriented x3. PSYCH: Normal mood and affect Course Course Emergency Course: Patient is aware of diagnosis, understands and agrees to treatment plan. Anticipatory guidance given. Patient agrees to follow-up as directed and is aware of reasons to seek care at the emergency department. Portions of this record may have been created with voice recognition software Level of Care: Express Care Visit Vital Signs Vital signs: Vital Signs Temperature 97.5 F L 12/23/24 17: Pulse Rate 85 12/23/24 17:29 Respiratory Rate 20 12/23/24 17:29 Blood Pressure 141/75 H 12/23/24 17:29 Pulse Oximetry 100 12/23/24 17:29 Oxygen Delivery Room Air 12/23/24 17:29 Temperature 97.5 F L 12/23/24 17:29 Pulse Rate 85 12/23/24 17:29 Respiratory Rate 20 12/23/24 17:29 Blood Pressure 141/75 H 12/23/24 17:29 Pulse Oximetry 100 12/23/24 17:29 Oxygen Delivery Room Air 12/23/24 17:29 Reviewed. MDM - Extremity Injury (Upper) MDM Narrative Medical decision making narrative: Patients injury and pain is consistent with musculoskeletal etiology. No signs of neurological or vascular compromise on exam. Compartments and tissues are soft without signs of compartment syndrome. Pain is felt appropriate for further evaluation on an outpatient basis. Imaging Data My impression: My x-ray state Radiologist's impression: EXAMINATION: XR hand RT min 3V DATE: 12/23/2024 17:44 INDICATION: Right hand pain. Fall. TECHNIQUE: 3 views of right hand were obtained. COMPARISON: Right hand radiograph 04/08/2023 FINDINGS: Alignment is normal. No fracture. Joint spaces are normal. IMPRESSION: 1. Normal right hand. Critical Care Time Critical Care Time Critical Care Time: No Discharge Plan Discharge Clinical Impression: Finger sprain Patient Disposition: Home, Self-Care Condition: Stable Instructions: Finger Sprain (ED) Additional Instructions: Avoid activities that cause pain until the pain subsides. Ice to the area 20-30 minutes 4-6 times a day Elevate above heart Orthopedic splint as directed for comfort for the next 5-7 days Tylenol for lesser pain Ibuprofen regularly for the next 2-3 days for the inflammation Follow up with your primary care provider if the condition is not improving within 1 week. If the condition worsens with numbness, tingling, decrease sensation with weakness seek treatment in the emergency room immediately. Patient Language: Upper Sorbian Prescriptions: No Action No Home Medications Follow-up/Referrals: PHYSICIAN[facility] [Primary Care Provider] - Time of Disposition: 17:55
== END 2024-12-23 18:00 | disposition home or self-care (01) ==
PROVIDERS: Emergency Provider Nurse Practitioner
DX: S63.610A Unspecified sprain of right index finger, initial encounter (principal); W06.XXXA Fall from bed, initial encounter; F17.210 Nicotine dependence, cigarettes, uncomplicated; F12.90 Cannabis use, unspecified, uncomplicated
CPT/HCPCS: 29130; 73130; 99213; G0463